=== PATIENT | female | born 1930 | race Caucasian/White ===

== ENCOUNTER 2017-07-23 22:10 | Emergency (ER) | payer MEDICARE, BC ==
--- NOTE | 2017-07-23 22:34 | EDM.PDOC ---
ED HPI GENERAL MEDICAL PROBLEM - General Chief Complaint: General Stated Complaint: HIGH BLOOD PRESSURE Time Seen by Provider: 07/23/17 22:20 - History of Present Illness INITIAL COMMENTS - FREE TEXT/NARRATIVE: HISTORY AND PHYSICAL: History of present illness: The patient is an 86-year-old female who follows with Dr. Arenas at [facility] and in fact saw him yesterday, Thursday, and she was told by the provider that her blood pressure was elevated and that she needed to reduce and/ or eliminate salt in her diet. She admitted to him that she had missed a dose of her medication and on that evaluation yesterday he did not adjust or change her medicines but advised her to be compliant. She was diagnosed with the UTI and placed on antibiotics which she states she is taking. This evening she took her blood pressure at home and it was elevated so she was concerned and came for evaluation. She has no headache dizziness or lightheadedness and no back pain no chest pain no shortness of breath no neurosensory changes or weakness in her extremities and no abdominal pain. He does admit to me that she has been "very liberal with the salt" lately. On initial evaluation here her blood pressure was 190/85 and then proceeded to drop to 176/69 and then again to 149/ 68 by just sitting in the department. She says she was told that she should check her blood pressure daily and record it but she has not been doing that either. She denies any leg pain or swelling. Currently the patient says she is completely asymptomatic and the only reason why she came here was because of the high number on her blood pressure reading at home Review of systems: As per history of present illness and below otherwise all systems reviewed and negative. Past medical history: As per history of present illness and as reviewed below otherwise noncontributory. Surgical history: As per history of present illness and as reviewed below otherwise noncontributory. Social history: No reported history of drug or alcohol abuse. Family history: As per history of present illness and as reviewed below otherwise noncontributory. Physical exam: Gen.: Well-developed well-nourished female who is nontoxic and vital signs were noted by me including the blood pressures as above in the history of present illness HEENT: Atraumatic, normocephalic, , negative for conjunctival pallor or scleral icterus, mucous membranes moist, throat clear, neck supple, nontender, trachea midline. Lungs: Clear to auscultation, breath sounds equal bilaterally, chest nontender. Heart: S1S2, regular rate and rhythm no overt murmurs Abdomen: Soft, nondistended, nontender. NABS Pelvis: Deferred Genitourinary: Deferred. Rectal: Deferred. Extremities: Atraumatic, negative for cords or calf pain. Neurovascular unremarkable. Neuro: Awake, alert, oriented. Cranial nerves II through XII unremarkable. Cerebellum unremarkable. Motor and sensory unremarkable throughout. Exam nonfocal. Diagnostics: [] Therapeutics: [] Encourage the patient to try to reduce or eliminate salt intake to be compliant with her blood pressure medications and to do a blood pressure journal recording her blood pressure approximately 3 hours after she wakes in the morning and to discuss these numbers with her provider in the clinic on Thursday or Thursday. She is aware that we do not acutely lower blood pressures here and she has already normalized without any intervention since arrival. I stressed to her reasons to return to the ED and need to contact the clinic tomorrow for follow-up appointment. Impression: Worried well, hypertension with history of same stable Definitive disposition and diagnosis as appropriate pending reevaluation and review of above. 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: Musculoskeletal History: Reports: Back Pain, Chronic Neurological History: Reports: None Psychiatric History: Reports: Anxiety Endocrine/Metabolic History: Reports: None Hematologic History: Reports: None Immunologic History: Reports: None Oncologic (Cancer) History: Reports: None Dermatologic History: Reports: None - Infectious Disease History Infectious Disease History: Reports: Chicken Pox - Past Surgical History Head Surgeries/Procedures: Reports: None Social & Family History - Family History Family Medical History: Noncontributory - Tobacco Use Smoking Status *Q: Never Smoker Second Hand Smoke Exposure: No - Caffeine Use Caffeine Use: Reports: Coffee, Tea - Recreational Drug Use Recreational Drug Use: No ED ROS GENERAL - Review of Systems Review Of Systems: ROS reveals no pertinent complaints other than HPI. ED EXAM, GENERAL - Physical Exam Exam: See Below (See dictation) Course - Vital Signs Last Recorded V/S: Last Vital Signs Temp 36.2 C 07/23/17 22:19 Pulse 66 07/23/17 22:24 Resp 18 07/23/17 22:19 BP 176/69 H 07/23/17 22:24 Pulse Ox 96 07/23/17 22:19 Departure - Departure Time of Disposition: 22:33 Disposition: Home, Self-Care 01 Condition: Good Clinical Impression: Worried well Hypertension Qualifiers: Hypertension type: unspecified secondary hypertension Qualified Code(s): I15.9 - Secondary hypertension, unspecified; I15 - Secondary hypertension - Discharge Information Referrals: Ravi Arenas MD [Primary Care Provider] - Additional Instructions: The following information is given to patients seen in the emergency department who are being discharged to home. This information is to outline your options for follow-up care. We provide all patients seen in our emergency department with a follow-up referral. The need for follow-up, as well as the timing and circumstances, are variable depending upon the specifics of your emergency department visit. If you don't have a primary care physician on staff, we will provide you with a referral. We always advise you to contact your personal physician following an emergency department visit to inform them of the circumstance of the visit and for follow-up with them and/or the need for any referrals to a consulting specialist. The emergency department will also refer you to a specialist when appropriate. This referral assures that you have the opportunity for followup care with a specialist. All of these measure are taken in an effort to provide you with optimal care, which includes your followup. Under all circumstances we always encourage you to contact your private physician who remains a resource for coordinating your care. When calling for followup care, please make the office aware that this follow-up is from your recent emergency room visit. If for any reason you are refused follow-up, please contact the [facility] emergency department at and ask to speak to the emergency department charge nurse. [facility] [address] [place] [address] [address] [id number] Please try to reduce and/or eliminate added salt in her diet as well as foods containing a great deal of sodium. Please read food labels to find this information. Please be compliant with your blood pressure medications and please do your blood pressure journal as we discussed taking her blood pressure every morning about 3 hours after you wake up and recording it so that your provider can see these numbers. Return to ER as needed and as discussed
[2017-07-23 22:56] VITALS: BP 168/68
== END 2017-07-23 22:49 | disposition home or self-care (01) ==
LOC: MW.ED 22:10
DX: I15.9 Secondary hypertension, unspecified (principal); I10 Essential (primary) hypertension; Z79.899 Other long term (current) drug therapy; Z88.7 Allergy status to serum and vaccine
CPT/HCPCS: 99282

== ENCOUNTER 2018-12-29 16:51 | Inpatient (IN) | payer MEDICARE, OTHER ==
[2018-12-29] MEDS ORDERED: Sodium Chloride 0.9% 10 ML SDV IV PRN (16:53)
[2018-12-29] MEDS ORDERED: Sodium Chloride 0.9% 2.5 ML Syringe FLUSH PRN (16:53)
[2018-12-29] MEDS ORDERED: Sodium Chloride 0.9% 10 ML Syringe FLUSH PRN (16:53)
--- NOTE | 2018-12-29 17:01 | EDM.PDOC ---
ED HPI GENERAL MEDICAL PROBLEM - General Stated Complaint: STROKE CODE Time Seen by Provider: 12/29/18 16:54 - History of Present Illness INITIAL COMMENTS - FREE TEXT/NARRATIVE: HISTORY AND PHYSICAL: History of present illness: Patient is a 88-year-old white female who presents here with her daughter who states that a half hour prior to arrival patient became somewhat confused and she then noticed a right facial droop patient complains on arrival here of some numbness to her right face and is noted to have a right facial droop. She denies chest pain shortness of breath trauma fever chills or other concerns. Patient's daughter describes her mental status episode as inability to dialysis on and somewhat confused speech and orientation this has improved somewhat since arrival here. Review of systems: As per history of present illness and below otherwise all systems reviewed and negative. Past medical history: As per history of present illness and as reviewed below otherwise noncontributory. Surgical history: As per history of present illness and as reviewed below otherwise noncontributory. Social history: No reported history of drug or alcohol abuse. Family history: As per history of present illness and as reviewed below otherwise noncontributory. Physical exam: HEENT: Atraumatic, normocephalic, pupils reactive, negative for conjunctival pallor or scleral icterus, mucous membranes moist, throat clear, neck supple, nontender, trachea midline. Lungs: Clear to auscultation, breath sounds equal bilaterally, chest nontender. Heart: S1S2, regular, negative for clicks, rubs, or JVD. Abdomen: Soft, nondistended, nontender. Negative for masses or hepatosplenomegaly. Negative for costovertebral tenderness. Pelvis: Stable nontender. Genitourinary: Deferred. Rectal: Deferred. Extremities: Atraumatic, negative for cords or calf pain. Neurovascular unremarkable. Neuro: Awake, alert, oriented. To person place does follow commands and move all extremities is noted to have a right facial droop and paresthesia of the right face.. Diagnostics: CBC CMP troponin PT/INR chest x-ray EKG CT brain Therapeutics: IV O2 monitor aspirin 324 mg by mouth Impression: #1 altered mental status improved #2 right facial droop with paresthesia Definitive disposition and diagnosis as appropriate pending reevaluation and review of above. - Related Data Allergies Allergy/AdvReac Type Severity Reaction Status Date / Time Tetanus Vaccines and Toxoid Allergy Other Verified 12/29/18 17:52 [Tetanus Vaccines & Toxoid] Home Meds: Home Meds . 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: Musculoskeletal History: Reports: Back Pain, Chronic Neurological History: Reports: None Psychiatric History: Reports: Anxiety Endocrine/Metabolic History: Reports: None Hematologic History: Reports: None Immunologic History: Reports: None Oncologic (Cancer) History: Reports: None Dermatologic History: Reports: None - Infectious Disease History Infectious Disease History: Reports: Chicken Pox, Measles - Past Surgical History Head Surgeries/Procedures: Reports: None HEENT Surgical History: Reports: None Cardiovascular Surgical History: Reports: None Respiratory Surgical History: Reports: None GI Surgical History: Reports: None Female Surgical History: Reports: None Endocrine Surgical History: Reports: None Neurological Surgical History: Reports: None Musculoskeletal Surgical History: Reports: None Dermatological Surgical History: Reports: None Social & Family History - Family History Family Medical History: Noncontributory - Caffeine Use Caffeine Use: Reports: None ED ROS GENERAL - Review of Systems Review Of Systems: ROS reveals no pertinent complaints other than HPI. ED EXAM, GENERAL - Physical Exam Exam: See Below (See dictation) Course - Vital Signs Text/Narrative:: Lengthy discussion with patient and daughter patient declines transfer declined TPA clearly understands risks and benefits of both she has had improvement in the emergency department during her short stay here Dr. Cantu kindly accepted patient for admission and did evaluate the patient in the emergency department patient will be admitted as CVA she was given aspirin emergency department and her blood pressure continues be monitored closely Last Recorded V/S: Last Vital Signs Temp 36.3 C 12/29/18 16:51 Pulse 101 H 12/29/18 16:51 Resp 20 12/29/18 16:51 BP 229/99 H 12/29/18 16:51 Pulse Ox 95 12/29/18 17:44 - Orders/Labs/Meds Orders: Active Orders 24 hr Category Date Time Status Assess Neurological Status [RC] ASDIRECTED Care 12/29/18 16:54 Active Bedrest [RC] ASDIRECTED Care 12/29/18 16:54 Active Cardiac Monitoring [RC] . DIRECTED Care 12/29/18 16:54 Active EKG Documentation Completion [RC] STAT Care 12/29/18 16:54 Active Height and Weight [RC] UPON Care 12/29/18 16:54 Active Initiate Acute Stroke Protocol [RC] STAT Care 12/29/18 16:54 Active NIH Stroke Scale [RC] ASDIRECTED Care 12/29/18 16:54 Active Nursing Bedside Swallow Screen [RC] ASDIRECTED Care 12/29/18 16:54 Active Oxygen Therapy [RC] ASDIRECTED Care 12/29/18 16:54 Active Stroke Education, General [RC] Click to Edit Care 12/29/18 16:54 Active Vital Signs [RC] Q15M Care 12/29/18 16:54 Active Head wo Cont [CT] Stat Exams 12/29/18 16:54 Taken Sodium Chloride 0.9% [Normal Saline] Med 12/29/18 16:53 Active 10 ml IV ASDIRECTED PRN Sodium Chloride 0.9% [Saline Flush] Med 12/29/18 16:53 Active 10 ml FLUSH ASDIRECTED PRN Sodium Chloride 0.9% [Saline Flush] Med 12/29/18 16:53 Active 2.5 ml FLUSH ASDIRECTED PRN Peripheral IV Insertion Adult [OM.PC] Stat Oth 12/29/18 16:54 Ordered Peripheral IV Insertion Adult [OM.PC] Stat Oth 12/29/18 16:54 Ordered Medication Orders Sodium Chloride (Saline Flush) 10 ml FLUSH ASDIRECTED PRN PRN Reason: Keep Vein Open Sodium Chloride (Saline Flush) 2.5 ml FLUSH ASDIRECTED PRN PRN Reason: Keep Vein Open Sodium Chloride (Normal Saline) 10 ml IV ASDIRECTED PRN PRN Reason: IV Use Labs: Laboratory Tests 12/29/18 12/29/18 12/29/18 Range/Units 16:55 16:55 16:55 WBC 7.16 (4.0-11.0) K/uL RBC 5.24 (4.30-5.90) M/uL Hgb 14.5 (12.0-16.0) g/dL Hct 44.3 (36.0-46.0) % MCV 84.5 (80.0-98.0) fL MCH 27.7 (27.0-32.0) pg MCHC 32.7 (31.0-37.0) g/dL RDW Std Deviation 45.8 (28.0-62.0) fl RDW Coeff of Tyron 15 (11.0-15.0) % Plt Count 193 (150-400) K/uL MPV 10.70 (7.40-12.00) fL Neut % (Auto) 53.6 (48.0-80.0) % Lymph % (Auto) 33.7 (16.0-40.0) % [place] % (Auto) 8.1 (0.0-15.0) % Eos % (Auto) 4.2 (0.0-7.0) % Baso % (Auto) 0.4 (0.0-1.5) % Neut # (Auto) 3.8 (1.4-5.7) K/uL Lymph # (Auto) 2.4 (0.6-2.4) K/uL [place] # (Auto) 0.6 (0.0-0.8) K/uL Eos # (Auto) 0.3 (0.0-0.7) K/uL Baso # (Auto) 0.0 (0.0-0.1) K/uL Nucleated RBC % 0.0 /100WBC Nucleated RBCs # 0 K/uL INR 0.95 APTT 26.4 (18.6-31.3) SEC Sodium 140 (136-145) mmol/L Potassium 4.5 (3.5-5.1) mmol/L Chloride 106 (98-107) mmol/L Carbon Dioxide 23.0 (21.0-32.0) mmol/L BUN 26 H (7.0-18.0) mg/dL Creatinine 0.9 (0.6-1.0) mg/dL Est Cr Clr Drug Dosing TNP Estimated GFR (MDRD) 59.4 ml/min Glucose 108 H (74-106) mg/dL Calcium 9.3 (8.5-10.1) mg/dL Total Bilirubin 0.4 (0.2-1.0) mg/dL AST 26 (15-37) IU/L ALT 30 (14-63) IU/L Alkaline Phosphatase 57 (46-116) U/L Troponin I < 0.050 (0.000-0.056) ng/mL Total Protein 7.7 (6.4-8.2) g/dL Albumin 3.6 (3.4-5.0) g/dL Globulin 4.1 H (2.6-4.0) g/dL Albumin/Globulin Ratio 0.9 (0.9-1.6) TSH 3rd Generation 4.15 H (0.36-3.74) uIU/mL Meds: Medications Generic Name Dose Route Start Last Admin Trade Name Freq PRN Reason Stop Dose Admin Sodium Chloride 10 ml 12/29/18 16:53 Saline Flush FLUSH ASDIRECTED PRN Keep Vein Open Sodium Chloride 2.5 ml 12/29/18 16:53 Saline Flush FLUSH ASDIRECTED PRN Keep Vein Open Sodium Chloride 10 ml 12/29/18 16:53 Normal Saline IV ASDIRECTED PRN IV Use Discontinued Medications Generic Name Dose Route Start Last Admin Trade Name Freq PRN Reason Stop Dose Admin Aspirin 324 mg 12/29/18 17:30 12/29/18 17:39 Aspirin PO 12/29/18 17:31 324 mg ONETIME ONE Administration Departure - Departure Time of Disposition: 18:00 Disposition: Admitted As Inpatient 68 Condition: Good Clinical Impression: CVA (cerebral vascular accident) - Discharge Information Referrals: PCP,None [Primary Care Provider] -
[2018-12-29] MEDS ORDERED: Aspirin 81 MG Tab.Chew PO ONE (17:30)
[2018-12-29 17:37] LABS: CHLORIDE,CL 106 mmol/L (98-107); SODIUM,NA 140 mmol/L (136-145)
--- NOTE | 2018-12-29 18:00 | CT ---
INDICATION: WEAKNESS CT HEAD WITHOUT CONTRAST TECHNIQUE: Multiple axial CT images were performed through the head without intravenous contrast administration. COMPARISON: 07/26/[address] FINDINGS: No acute intracranial hemorrhage is identified. No extra-axial collections are evident and there is no mass effect or midline shift. There is mild diffuse age-related brain atrophy. Ventricular size and configuration are within normal limits for the patient`s age. Dumont-white differentiation is within normal limits. There is patchy hypodensity in the periventricular white matter, a nonspecific finding which most likely reflects chronic small vessel ischemic change. Intracranial atherosclerotic vascular calcifications are noted. Osseous structures are within normal limits and no fractures are seen. Included portions of the paranasal sinuses and mastoid air cells are normally aerated. IMPRESSION: 1. No acute intracranial abnormality identified. 2. Age-related brain atrophy, white matter hypodensity consistent with chronic small vessel ischemic change, and intracranial atherosclerotic vascular calcifications. Report called to Dr. White at 5:34pm 12/29/2018. LIZETT PACHECO MD [employer] Dictated by: Micah Pacheco MD @ 12/29/2018 17:59:05 (Electronically Signed)
[2018-12-29] MEDS ORDERED: Acetaminophen 325 MG Tab PO PRN (18:05)
[2018-12-29] MEDS ORDERED: oxyCODONE 5 MG Tab PO PRN (18:05)
[2018-12-29] MEDS ORDERED: Ondansetron 4 MG Tab.DIS PO PRN (18:05)
[2018-12-29] MEDS ORDERED: Temazepam 15 MG Cap PO PRN (18:05)
[2018-12-29] MEDS ORDERED: Docusate Sodium 100 MG Cap PO PRN (18:05)
[2018-12-29] MEDS ORDERED: Sodium Chloride 0.9% 1,000 ML IV SCH (18:15)
--- NOTE | 2018-12-29 18:23 | PCM.HP ---
H&P History of Present Illness - General Date of Service: 12/29/18 Admit Problem/Dx: Admission Diagnosis/Problem Admission Diagnosis/Problem CVA, Cerebrovascular accident Source of Information: Patient, Family History Limitations: Reports: No Limitations - History of Present Illness Initial Comments - Free Text/Narative: The patient is an 88-year-old lady who had presented to the emergency department with acute onset of stroke symptoms. The patient and the patient's daughter can pinpoint the exact time of symptoms starting at about 1615 prior to presentation. The patient was improving and was not eligible for TPA. The patient had numbness and tingling predominantly on the left side. She also had a left-sided facial droop. She had some slurring of her speech. The patient's ER visit was listed as a stroke code. The patient had denied any diaphoresis. She's had no nausea vomiting associated with this. The patient has no pain. She has been able to communicate effectively. Both patient and the patient's daughter did not want transfer to tertiary care center. The patient also had requested a DO NOT INTUBATE/DO NOT RESUSCITATE categorization. The patient is otherwise mostly healthy and she does not take any medications chronically but she does take multiple nutritional supplements. Onset of Symptoms: Reports: Sudden Duration of Symptoms: Reports: Hour(s):, Improving Location: Reports: Generalized Quality: Denies: Ache, Burning Severity: Mild Improves with: Reports: Rest Worsens with: Reports: None Associated Symptoms: Reports: No Other Symptoms no pain Pain Score (Numeric/FACES): 0 - Related Data Allergies/Adverse Reactions: Allergies Allergy/AdvReac Type Severity Reaction Status Date / Time Tetanus Vaccines and Toxoid Allergy Other Verified 12/29/18 17:52 [Tetanus Vaccines & Toxoid] Home Medications: Home Meds . [No Known Home Meds] 12/29/18 [History] Past Medical History HEENT History: Reports: None Cardiovascular History: Reports: Hypertension Respiratory History: Reports: None Gastrointestinal History: Reports: None Genitourinary History: Reports: Urinary Incontinence, UTI, Recurrent SMOKE TESTER History: Reports: Musculoskeletal History: Reports: Back Pain, Chronic Neurological History: Reports: None Psychiatric History: Reports: Anxiety Endocrine/Metabolic History: Reports: None Hematologic History: Reports: None Immunologic History: Reports: None Oncologic (Cancer) History: Reports: None Dermatologic History: Reports: None - Infectious Disease History Infectious Disease History: Reports: Chicken Pox, Measles - Past Surgical History Head Surgeries/Procedures: Reports: None HEENT Surgical History: Reports: None Cardiovascular Surgical History: Reports: None Respiratory Surgical History: Reports: None GI Surgical History: Reports: None Female Surgical History: Reports: None Endocrine Surgical History: Reports: None Neurological Surgical History: Reports: None Musculoskeletal Surgical History: Reports: None Dermatological Surgical History: Reports: None Social & Family History - Family History Family Medical History: Noncontributory - Tobacco Use Smoking Status *Q: Never Smoker - Caffeine Use Caffeine Use: Reports: None - Alcohol Use Alcohol Use History: No - Recreational Drug Use Recreational Drug Use: No - Living Situation & Occupation Living situation: Reports: , Alone Occupation: Retired H&P Review of Systems - Review of Systems: Review Of Systems: See Below General: Reports: No Symptoms HEENT: Reports: No Symptoms Pulmonary: Reports: No Symptoms Cardiovascular: Reports: No Symptoms Gastrointestinal: Reports: No Symptoms Genitourinary: Reports: No Symptoms Musculoskeletal: Reports: No Symptoms Skin: Reports: No Symptoms Psychiatric: Reports: No Symptoms Neurological: Reports: Numbness, Tingling, Difficulty Walking, Weakness Hematologic/Lymphatic: Reports: No Symptoms Immunologic: Reports: No Symptoms Exam - Exam Exam: See Below - Vital Signs Vital Signs: Last Vital Signs Temp 36.3 C 12/29/18 16:51 Pulse 88 12/29/18 18:04 Resp 18 12/29/18 18:04 BP 187/84 H 12/29/18 18:04 Pulse Ox 94 L 12/29/18 18:04 Weight: 62.2 kg - Exam Quality Assessment: No: Supplemental Oxygen General: Alert, Oriented, Cooperative HEENT: Conjunctiva Clear, EACs Clear, EOMI, Hearing Intact, Mucosa Moist & [place] , Posterior Pharynx Clear (Uvula midline), Pupils Equal, PERRLA Neck: Supple, Trachea Midline Lungs: Clear to Auscultation, Normal Respiratory Effort Cardiovascular: Regular Rate, Regular Rhythm GI/Abdominal Exam: Normal Bowel Sounds, Soft, Non-Tender, No Distention. No: Guarding, Rigid Back Exam: Normal Inspection (Kyphosis), Full Range of Motion Extremities: Normal Inspection, No Pedal Edema Skin: Warm, Dry, Intact Neurological: Cranial Nerves Intact Neuro Extensive - Mental Status: Alert, Oriented x3, Normal Mood/Affect, Normal Cognition Neuro Extensive - Motor, Sensory, Reflexes: CN II-XII Intact, Facial palsy (L), Facial Palsy w Forehead. No: Abnormal Reflexes, Tongue Deviation (L), Tongue Deviation (R), Abnormal Sensation, Abnormal Motor Psychiatric: Alert, Normal Affect, Normal Mood - Patient Data Lab Results Last 24 hrs: Laboratory Results - last 24 hr 12/29/18 12/29/18 12/29/18 Range/Units 16:55 16:55 16:55 WBC 7.16 (4.0-11.0) K/uL RBC 5.24 (4.30-5.90) M/uL Hgb 14.5 (12.0-16.0) g/dL Hct 44.3 (36.0-46.0) % MCV 84.5 (80.0-98.0) fL MCH 27.7 (27.0-32.0) pg MCHC 32.7 (31.0-37.0) g/dL RDW Std Deviation 45.8 (28.0-62.0) fl RDW Coeff of Tyron 15 (11.0-15.0) % Plt Count 193 (150-400) K/uL MPV 10.70 (7.40-12.00) fL Neut % (Auto) 53.6 (48.0-80.0) % Lymph % (Auto) 33.7 (16.0-40.0) % [place] % (Auto) 8.1 (0.0-15.0) % Eos % (Auto) 4.2 (0.0-7.0) % Baso % (Auto) 0.4 (0.0-1.5) % Neut # (Auto) 3.8 (1.4-5.7) K/uL Lymph # (Auto) 2.4 (0.6-2.4) K/uL [place] # (Auto) 0.6 (0.0-0.8) K/uL Eos # (Auto) 0.3 (0.0-0.7) K/uL Baso # (Auto) 0.0 (0.0-0.1) K/uL Nucleated RBC % 0.0 /100WBC Nucleated RBCs # 0 K/uL INR 0.95 APTT 26.4 (18.6-31.3) SEC Sodium 140 (136-145) mmol/L Potassium 4.5 (3.5-5.1) mmol/L Chloride 106 (98-107) mmol/L Carbon Dioxide 23.0 (21.0-32.0) mmol/L BUN 26 H (7.0-18.0) mg/dL Creatinine 0.9 (0.6-1.0) mg/dL Est Cr Clr Drug Dosing TNP Estimated GFR (MDRD) 59.4 ml/min Glucose 108 H (74-106) mg/dL Calcium 9.3 (8.5-10.1) mg/dL Total Bilirubin 0.4 (0.2-1.0) mg/dL AST 26 (15-37) IU/L ALT 30 (14-63) IU/L Alkaline Phosphatase 57 (46-116) U/L Troponin I < 0.050 (0.000-0.056) ng/mL Total Protein 7.7 (6.4-8.2) g/dL Albumin 3.6 (3.4-5.0) g/dL Globulin 4.1 H (2.6-4.0) g/dL Albumin/Globulin Ratio 0.9 (0.9-1.6) TSH 3rd Generation 4.15 H (0.36-3.74) uIU/mL Result Diagrams: 12/30/18 06:43 12/29/18 16:55 - Problem List (1) CVA (cerebral vascular accident) SNOMED Code(s): 190224342 ICD Code: I63.9 - CEREBRAL INFARCTION, UNSPECIFIED Status: Acute Priority : High Current Visit: Yes Qualifiers: CVA mechanism: embolism Precerebral and cerebral artery: unspecified cerebral artery Qualified Code(s): I63.40 - Cerebral infarction due to embolism of unspecified cerebral artery (2) Hypertension SNOMED Code(s): 59031516 ICD Code: I10 - ESSENTIAL (PRIMARY) HYPERTENSION Status: Chronic Priority : High Current Visit: Yes Qualifiers: Hypertension type: essential hypertension Qualified Code(s): I10 - Essential (primary) hypertension (3) Lumbar back pain SNOMED Code(s): 081861110 ICD Code: M54.5 - LOW BACK PAIN Status: Chronic Priority: Medium Current Visit: Yes Qualifiers: Chronicity: chronic Back pain laterality: bilateral Sciatica presence: without sciatica Qualified Code(s): M54.5 - Low back pain; G89.29 - Other chronic pain Problem List Initiated/Reviewed/Updated: Yes Orders Last 24hrs: Active Orders 24 hr Category Date Time Status Patient Status [ADT] Stat ADT 12/29/18 18:02 Active Assess Neurological Status [RC] ASDIRECTED Care 12/29/18 16:54 Active Bedrest [RC] ASDIRECTED Care 12/29/18 16:54 Active Cardiac Monitoring [RC] . DIRECTED Care 12/29/18 16:54 Active EKG Documentation Completion [RC] STAT Care 12/29/18 16:54 Active Height and Weight [RC] UPON Care 12/29/18 16:54 Active Initiate Acute Stroke Protocol [RC] STAT Care 12/29/18 16:54 Active NIH Stroke Scale [RC] ASDIRECTED Care 12/29/18 16:54 Active Neuro Check [RC] Q4H Care 12/29/18 18:05 Active Nursing Bedside Swallow Screen [RC] ASDIRECTED Care 12/29/18 16:54 Active Oxygen Therapy [RC] ASDIRECTED Care 12/29/18 16:54 Active Oxygen Therapy [RC] PRN Care 12/29/18 18:05 Active Stroke Education, General [RC] Click to Edit Care 12/29/18 16:54 Active Up With Assistance [RC] ASDIRECTED Care 12/29/18 18:05 Active VTE/DVT Education [RC] PER UNIT ROUTINE Care 12/29/18 18:05 Active Vital Signs [RC] Q15M Care 12/29/18 16:54 Active Vital Signs [RC] Q4H Care 12/29/18 18:05 Active OT Evaluation and Treatment [CONS] Routine Cons 12/29/18 18:05 Active PT Evaluation and Treatment [CONS] Routine Cons 12/29/18 18:05 Active BOOSTER PUMP OPERATOR Evaluation and Treatment [CONS] Routine Cons 12/29/18 18:05 Active Clear Liquid Diet [DIET] Diet 12/29/18 Breakfast Active CBC WITH AUTO DIFF [HEME] AM Lab 12/30/18 05:11 Ordered COMPREHENSIVE METABOLIC PN,CMP [CHEM] AM Lab 12/30/18 05:11 Ordered LIPID PANEL [CHEM] Stat Lab 12/29/18 18:05 Ordered Acetaminophen [Tylenol] Med 12/29/18 18:05 Ordered 650 mg PO Q4H PRN Docusate Sodium [Colace] Med 12/29/18 18:05 Ordered 100 mg PO BID PRN Heparin Sodium Med 12/29/18 18:15 Ordered 5,000 units SUBCUT Q8H Ondansetron [Zofran ODT] Med 12/29/18 18:05 Ordered 4 mg PO Q6H PRN Sodium Chloride 0.9% [Normal Saline] Med 12/29/18 16:53 Active 10 ml IV ASDIRECTED PRN Sodium Chloride 0.9% [Normal Saline] 1,000 ml Med 12/29/18 18:15 Ordered IV ASDIRECTED Sodium Chloride 0.9% [Saline Flush] Med 12/29/18 16:53 Active 10 ml FLUSH ASDIRECTED PRN Sodium Chloride 0.9% [Saline Flush] Med 12/29/18 16:53 Active 2.5 ml FLUSH ASDIRECTED PRN Temazepam [Restoril] Med 12/29/18 18:05 Ordered 15 mg PO BEDTIME PRN oxyCODONE Med 12/29/18 18:05 Ordered 5 mg PO Q4H PRN Blood Pressure Mgmt:Acute Stroke [OM.PC] Urgent Oth 12/29/18 18:14 Ordered Blood Pressure [OM.PC] Stat Ot 12/29/18 18:16 Ordered Peripheral IV Insertion Adult [OM.PC] Stat Ot 12/29/18 16:54 Ordered Peripheral IV Insertion Adult [OM.PC] Stat Ot 12/29/18 16:54 Ordered Resuscitation Status Routine Resus Stat 12/29/18 18:05 Ordered Medication Orders Acetaminophen (Tylenol) 650 mg PO Q4H PRN PRN Reason: Pain (Mild 1-3)/fever Docusate Sodium (Colace) 100 mg PO BID PRN PRN Reason: Constipation Heparin Sodium (Porcine) (Heparin Sodium) 5,000 units SUBCUT Q8H [facility] Sodium Chloride (Normal Saline) 1,000 mls @ 50 mls/hr IV ASDIRECTED [facility] Ondansetron HCl (Zofran Odt) 4 mg PO Q6H PRN PRN Reason: nausea, able to take PO Oxycodone HCl (Oxycodone) 5 mg PO Q4H PRN PRN Reason: Pain (moderate 4-6) Sodium Chloride (Saline Flush) 10 ml FLUSH ASDIRECTED PRN PRN Reason: Keep Vein Open Sodium Chloride (Saline Flush) 2.5 ml FLUSH ASDIRECTED PRN PRN Reason: Keep Vein Open Sodium Chloride (Normal Saline) 10 ml IV ASDIRECTED PRN PRN Reason: IV Use Temazepam (Restoril) 15 mg PO BEDTIME PRN PRN Reason: Sleep Assessment/Plan Comment:: The patient is an 88-year-old lady who had been admitted secondary to acute stroke. I've admitted the patient is an inpatient with neuro checks every 4 hours. I've also ordered the patient to have vital signs every 4 hours. I've ordered an MRI/MRA of brain to help identify areas of possible ischemia. Is also noted that the patient's blood pressure was elevated and she had been recommended to keep her blood pressure between 140 and 160 mmHg systolic blood pressure. This was done to help oxygenate watershed areas. Physical therapy is also been ordered for the patient. The patient did have a bedside swallow inducted in the emergency department and she was able to handle thin liquids without coughing. In the interim the patient will be kept on clear liquid diet until swallow study The patient will ordered to have a more in-depth swallow and speech evaluation. I explained to the patient the patient's daughter the differences between TIA and cerebral infarct and that now she was at the phase of secondary prevention. CT scan did not show any evidence of cerebral hemorrhage therefore she'll have DVT prophylaxis with the use of heparin. The patient does not normally like taking medications however, I explained that she will be needing some medications upon discharge. The patient should be appropriate for discharge in 1-2 days.
[2018-12-29] MEDS: Heparin Sodium 5,000 Units/ML Vial SUBCUT SCH (22:00)
[2018-12-30] MEDS: Heparin Sodium 5,000 Units/ML Vial SUBCUT SCH ×3 (05:28→21:41)
--- NOTE | 2018-12-30 10:05 | PCM.DCSUM1 ---
Discharge Summary - Discharge Data Discharge Disposition: Home, Self-Care 01 Condition: Fair - Discharge Diagnosis/Problem(s) (1) CVA (cerebral vascular accident) SNOMED Code(s): 920582413 ICD Code: I63.9 - CEREBRAL INFARCTION, UNSPECIFIED Status: Acute Priority : High Current Visit: Yes Qualifiers: CVA mechanism: embolism Precerebral and cerebral artery: unspecified cerebral artery Qualified Code(s): I63.40 - Cerebral infarction due to embolism of unspecified cerebral artery (2) Hypertension SNOMED Code(s): 10717611 ICD Code: I10 - ESSENTIAL (PRIMARY) HYPERTENSION Status: Chronic Priority : High Current Visit: Yes Qualifiers: Hypertension type: essential hypertension Qualified Code(s): I10 - Essential (primary) hypertension (3) Lumbar back pain SNOMED Code(s): 836701824 ICD Code: M54.5 - LOW BACK PAIN Status: Chronic Priority: Medium Current Visit: Yes Qualifiers: Chronicity: chronic Back pain laterality: bilateral Sciatica presence: without sciatica Qualified Code(s): M54.5 - Low back pain; G89.29 - Other chronic pain - Patient Summary/Data Consults: Consultations 12/29/18 18:05 OT Evaluation and Treatment [CONS] Routine PT Evaluation and Treatment [CONS] Routine PLY BANDER Evaluation and Treatment [CONS] Routine - Discharge Plan Home Medications: Home Meds . [No Known Home Meds] 12/29/18 [History] Referrals: Ravi Arenas MD [Ordering Only Provider] - 01/06/19 9:30 am - Patient Data Vitals - Most Recent: Last Vital Signs Temp 36.4 C 12/30/18 08:00 Pulse 78 12/30/18 08:00 Resp 18 12/30/18 08:00 BP 181/84 H 12/30/18 08:00 Pulse Ox 95 12/30/18 08:00 Weight - Most Recent: 62.2 kg I&O - Last 24 hours: Intake & Output 12/29/18 12/30/18 12/30/18 22:59 06:59 14:59 Intake Total 1320 696 Output Total 700 Balance 620 696 Lab Results - Last 24 hrs: Laboratory Results - last 24 hr 12/29/18 12/29/18 12/29/18 Range/Units 16:55 16:55 16:55 WBC 7.16 (4.0-11.0) K/uL RBC 5.24 (4.30-5.90) M/uL Hgb 14.5 (12.0-16.0) g/dL Hct 44.3 (36.0-46.0) % MCV 84.5 (80.0-98.0) fL MCH 27.7 (27.0-32.0) pg MCHC 32.7 (31.0-37.0) g/dL RDW Std Deviation 45.8 (28.0-62.0) fl RDW Coeff of Tyron 15 (11.0-15.0) % Plt Count 193 (150-400) K/uL MPV 10.70 (7.40-12.00) fL Neut % (Auto) 53.6 (48.0-80.0) % Lymph % (Auto) 33.7 (16.0-40.0) % [place] % (Auto) 8.1 (0.0-15.0) % Eos % (Auto) 4.2 (0.0-7.0) % Baso % (Auto) 0.4 (0.0-1.5) % Neut # (Auto) 3.8 (1.4-5.7) K/uL Lymph # (Auto) 2.4 (0.6-2.4) K/uL [place] # (Auto) 0.6 (0.0-0.8) K/uL Eos # (Auto) 0.3 (0.0-0.7) K/uL Baso # (Auto) 0.0 (0.0-0.1) K/uL Nucleated RBC % 0.0 /100WBC Nucleated RBCs # 0 K/uL INR 0.95 APTT 26.4 (18.6-31.3) SEC Sodium 140 (136-145) mmol/L Potassium 4.5 (3.5-5.1) mmol/L Chloride 106 (98-107) mmol/L Carbon Dioxide 23.0 (21.0-32.0) mmol/L BUN 26 H (7.0-18.0) mg/dL Creatinine 0.9 (0.6-1.0) mg/dL Est Cr Clr Drug Dosing TNP Estimated GFR (MDRD) 59.4 ml/min Glucose 108 H (74-106) mg/dL Calcium 9.3 (8.5-10.1) mg/dL Total Bilirubin 0.4 (0.2-1.0) mg/dL AST 26 (15-37) IU/L ALT 30 (14-63) IU/L Alkaline Phosphatase 57 (46-116) U/L Troponin I < 0.050 (0.000-0.056) ng/mL Total Protein 7.7 (6.4-8.2) g/dL Albumin 3.6 (3.4-5.0) g/dL Globulin 4.1 H (2.6-4.0) g/dL Albumin/Globulin Ratio 0.9 (0.9-1.6) Triglycerides (0-200) mg/dL Cholesterol (50-200) mg/dL LDL Cholesterol, Calc (60-180) mg/dL VLDL Cholesterol (5-55) mg/dL HDL Cholesterol (40-60) mg/dL Cholesterol/HDL Ratio (3.3-6.0) TSH 3rd Generation 4.15 H (0.36-3.74) uIU/mL 12/29/18 12/30/18 12/30/18 Range/Units 16:55 06:43 06:43 WBC 5.97 (4.0-11.0) K/uL RBC 4.84 (4.30-5.90) M/uL Hgb 13.1 (12.0-16.0) g/dL Hct 41.0 (36.0-46.0) % MCV 84.7 (80.0-98.0) fL MCH 27.1 (27.0-32.0) pg MCHC 32.0 (31.0-37.0) g/dL RDW Std Deviation 45.8 (28.0-62.0) fl RDW Coeff of [place]ron 15 (11.0-15.0) % Plt Count 161 (150-400) K/uL MPV 10.20 (7.40-12.00) fL Neut % (Auto) 54.3 (48.0-80.0) % Lymph % (Auto) 34.8 (16.0-40.0) % [place] % (Auto) 5.7 (0.0-15.0) % Eos % (Auto) 4.9 (0.0-7.0) % Baso % (Auto) 0.3 (0.0-1.5) % Neut # (Auto) 3.2 (1.4-5.7) K/uL Lymph # (Auto) 2.1 (0.6-2.4) K/uL [place] # (Auto) 0.3 (0.0-0.8) K/uL Eos # (Auto) 0.3 (0.0-0.7) K/uL Baso # (Auto) 0.0 (0.0-0.1) K/uL Nucleated RBC % 0.0 /100WBC Nucleated RBCs # 0 K/uL INR APTT (18.6-31.3) SEC Sodium 143 (136-145) mmol/L Potassium 4.0 (3.5-5.1) mmol/L Chloride 110 H (98-107) mmol/L Carbon Dioxide 24.3 (21.0-32.0) mmol/L BUN 19 H (7.0-18.0) mg/dL Creatinine 0.9 (0.6-1.0) mg/dL Est Cr Clr Drug Dosing 32.23 Estimated GFR (MDRD) 59.4 ml/min Glucose 99 (74-106) mg/dL Calcium 8.5 (8.5-10.1) mg/dL Total Bilirubin 0.6 (0.2-1.0) mg/dL AST 20 (15-37) IU/L ALT 27 (14-63) IU/L Alkaline Phosphatase 51 (46-116) U/L Troponin I (0.000-0.056) ng/mL Total Protein 6.6 (6.4-8.2) g/dL Albumin 3.1 L (3.4-5.0) g/dL Globulin 3.5 (2.6-4.0) g/dL Albumin/Globulin Ratio 0.9 (0.9-1.6) Triglycerides 139 (0-200) mg/dL Cholesterol 230 H (50-200) mg/dL LDL Cholesterol, Calc 144 (60-180) mg/dL VLDL Cholesterol 27 (5-55) mg/dL HDL Cholesterol 58 (40-60) mg/dL Cholesterol/HDL Ratio 4.0 (3.3-6.0) TSH 3rd Generation (0.36-3.74) uIU/mL Med Orders - Current: Current Medications Acetaminophen (Tylenol) 650 mg PO Q4H PRN PRN Reason: Pain (Mild 1-3)/fever Docusate Sodium (Colace) 100 mg PO BID PRN PRN Reason: Constipation Heparin Sodium (Porcine) (Heparin Sodium) 5,000 units SUBCUT Q8H [facility] Last Admin: 12/30/18 05:28 Dose: Not Given Sodium Chloride (Normal Saline) 1,000 mls @ 50 mls/hr IV ASDIRECTED [facility] Last Admin: 12/29/18 18:49 Dose: 50 mls/hr Ondansetron HCl (Zofran Odt) 4 mg PO Q6H PRN PRN Reason: nausea, able to take PO Oxycodone HCl (Oxycodone) 5 mg PO Q4H PRN PRN Reason: Pain (moderate 4-6) Sodium Chloride (Saline Flush) 10 ml FLUSH ASDIRECTED PRN PRN Reason: Keep Vein Open Sodium Chloride (Saline Flush) 2.5 ml FLUSH ASDIRECTED PRN PRN Reason: Keep Vein Open Sodium Chloride (Normal Saline) 10 ml IV ASDIRECTED PRN PRN Reason: IV Use Temazepam (Restoril) 15 mg PO BEDTIME PRN PRN Reason: Sleep Discontinued Medications Aspirin (Aspirin) 324 mg PO ONETIME ONE Stop: 12/29/18 17:31 Last Admin: 12/29/18 17:39 Dose: 324 mg
[2018-12-30] MEDS ORDERED: cloNIDine 0.1 MG Tab PO ONE (11:58)
[2018-12-30] MEDS ORDERED: Labetalol 100 MG/20 ML MDV IVPUSH PRN ×2 (13:44→16:58)
--- NOTE | 2018-12-30 13:46 | PCM.PN ---
- General Info Date of Service: 12/30/18 Admission Dx/Problem (Free Text): Admission Diagnosis/Problem Admission Diagnosis/Problem CVA, Cerebrovascular accident Subjective Update: The patient is an 88-year-old lady who had been admitted secondary to acute stroke. The patient says that she has been feeling weak. The patient's blood pressure has been elevated. She also has been evaluated by physical therapy and speech therapy and is to have a full diet. She can swallow safely. The patient has denied any pain. She has no numbness or tingling of her left side which brought her here in the first place. The patient does still has some left-sided numbness. She has no other complaints at the present time. Functional Status: Reports: Pain Controlled - Review of Systems General: Reports: Weakness HEENT: Reports: No Symptoms Pulmonary: Reports: No Symptoms Cardiovascular: Reports: No Symptoms Gastrointestinal: Reports: No Symptoms Genitourinary: Reports: No Symptoms Musculoskeletal: Reports: No Symptoms Skin: Reports: No Symptoms Neurological: Reports: Pre-Existing Deficit, Change in Speech Psychiatric: Reports: No Symptoms - Patient Data Vitals - Most Recent: Last Vital Signs Temp 35.9 C 12/30/18 12:00 Pulse 77 12/30/18 12:00 Resp 20 12/30/18 12:00 BP 170/75 H 12/30/18 13:30 Pulse Ox 95 12/30/18 12:00 Weight - Most Recent: 62.2 kg I&O - Last 24 Hours: Intake & Output 12/29/18 12/30/18 12/30/18 22:59 06:59 14:59 Intake Total 1320 696 Output Total 700 Balance 620 696 Lab Results Last 24 Hours: Laboratory Results - last 24 hr 12/29/18 12/29/18 12/29/18 Range/Units 16:55 16:55 16:55 WBC 7.16 (4.0-11.0) K/uL RBC 5.24 (4.30-5.90) M/uL Hgb 14.5 (12.0-16.0) g/dL Hct 44.3 (36.0-46.0) % MCV 84.5 (80.0-98.0) fL MCH 27.7 (27.0-32.0) pg MCHC 32.7 (31.0-37.0) g/dL RDW Std Deviation 45.8 (28.0-62.0) fl RDW Coeff of Tyron 15 (11.0-15.0) % Plt Count 193 (150-400) K/uL MPV 10.70 (7.40-12.00) fL Neut % (Auto) 53.6 (48.0-80.0) % Lymph % (Auto) 33.7 (16.0-40.0) % [place] % (Auto) 8.1 (0.0-15.0) % Eos % (Auto) 4.2 (0.0-7.0) % Baso % (Auto) 0.4 (0.0-1.5) % Neut # (Auto) 3.8 (1.4-5.7) K/uL Lymph # (Auto) 2.4 (0.6-2.4) K/uL [place] # (Auto) 0.6 (0.0-0.8) K/uL Eos # (Auto) 0.3 (0.0-0.7) K/uL Baso # (Auto) 0.0 (0.0-0.1) K/uL Nucleated RBC % 0.0 /100WBC Nucleated RBCs # 0 K/uL INR 0.95 APTT 26.4 (18.6-31.3) SEC Sodium 140 (136-145) mmol/L Potassium 4.5 (3.5-5.1) mmol/L Chloride 106 (98-107) mmol/L Carbon Dioxide 23.0 (21.0-32.0) mmol/L BUN 26 H (7.0-18.0) mg/dL Creatinine 0.9 (0.6-1.0) mg/dL Est Cr Clr Drug Dosing TNP Estimated GFR (MDRD) 59.4 ml/min Glucose 108 H (74-106) mg/dL Calcium 9.3 (8.5-10.1) mg/dL Total Bilirubin 0.4 (0.2-1.0) mg/dL AST 26 (15-37) IU/L ALT 30 (14-63) IU/L Alkaline Phosphatase 57 (46-116) U/L Troponin I < 0.050 (0.000-0.056) ng/mL Total Protein 7.7 (6.4-8.2) g/dL Albumin 3.6 (3.4-5.0) g/dL Globulin 4.1 H (2.6-4.0) g/dL Albumin/Globulin Ratio 0.9 (0.9-1.6) Triglycerides (0-200) mg/dL Cholesterol (50-200) mg/dL LDL Cholesterol, Calc (60-180) mg/dL VLDL Cholesterol (5-55) mg/dL HDL Cholesterol (40-60) mg/dL Cholesterol/HDL Ratio (3.3-6.0) TSH 3rd Generation 4.15 H (0.36-3.74) uIU/mL 12/29/18 12/30/18 12/30/18 Range/Units 16:55 06:43 06:43 WBC 5.97 (4.0-11.0) K/uL RBC 4.84 (4.30-5.90) M/uL Hgb 13.1 (12.0-16.0) g/dL Hct 41.0 (36.0-46.0) % MCV 84.7 (80.0-98.0) fL MCH 27.1 (27.0-32.0) pg MCHC 32.0 (31.0-37.0) g/dL RDW Std Deviation 45.8 (28.0-62.0) fl RDW Coeff of Tyron 15 (11.0-15.0) % Plt Count 161 (150-400) K/uL MPV 10.20 (7.40-12.00) fL Neut % (Auto) 54.3 (48.0-80.0) % Lymph % (Auto) 34.8 (16.0-40.0) % [place] % (Auto) 5.7 (0.0-15.0) % Eos % (Auto) 4.9 (0.0-7.0) % Baso % (Auto) 0.3 (0.0-1.5) % Neut # (Auto) 3.2 (1.4-5.7) K/uL Lymph # (Auto) 2.1 (0.6-2.4) K/uL [place] # (Auto) 0.3 (0.0-0.8) K/uL Eos # (Auto) 0.3 (0.0-0.7) K/uL Baso # (Auto) 0.0 (0.0-0.1) K/uL Nucleated RBC % 0.0 /100WBC Nucleated RBCs # 0 K/uL INR APTT (18.6-31.3) SEC Sodium 143 (136-145) mmol/L Potassium 4.0 (3.5-5.1) mmol/L Chloride 110 H (98-107) mmol/L Carbon Dioxide 24.3 (21.0-32.0) mmol/L BUN 19 H (7.0-18.0) mg/dL Creatinine 0.9 (0.6-1.0) mg/dL Est Cr Clr Drug Dosing 32.23 Estimated GFR (MDRD) 59.4 ml/min Glucose 99 (74-106) mg/dL Calcium 8.5 (8.5-10.1) mg/dL Total Bilirubin 0.6 (0.2-1.0) mg/dL AST 20 (15-37) IU/L ALT 27 (14-63) IU/L Alkaline Phosphatase 51 (46-116) U/L Troponin I (0.000-0.056) ng/mL Total Protein 6.6 (6.4-8.2) g/dL Albumin 3.1 L (3.4-5.0) g/dL Globulin 3.5 (2.6-4.0) g/dL Albumin/Globulin Ratio 0.9 (0.9-1.6) Triglycerides 139 (0-200) mg/dL Cholesterol 230 H (50-200) mg/dL LDL Cholesterol, Calc 144 (60-180) mg/dL VLDL Cholesterol 27 (5-55) mg/dL HDL Cholesterol 58 (40-60) mg/dL Cholesterol/HDL Ratio 4.0 (3.3-6.0) TSH 3rd Generation (0.36-3.74) uIU/mL Med Orders - Current: Current Medications Acetaminophen (Tylenol) 650 mg PO Q4H PRN PRN Reason: Pain (Mild 1-3)/fever Docusate Sodium (Colace) 100 mg PO BID PRN PRN Reason: Constipation Heparin Sodium (Porcine) (Heparin Sodium) 5,000 units SUBCUT Q8H [facility] Last Admin: 12/30/18 05:28 Dose: Not Given Sodium Chloride (Normal Saline) 1,000 mls @ 50 mls/hr IV ASDIRECTED VANNESA Last Admin: 12/29/18 18:49 Dose: 50 mls/hr Ondansetron HCl (Zofran Odt) 4 mg PO Q6H PRN PRN Reason: nausea, able to take PO Oxycodone HCl (Oxycodone) 5 mg PO Q4H PRN PRN Reason: Pain (moderate 4-6) Sodium Chloride (Saline Flush) 10 ml FLUSH ASDIRECTED PRN PRN Reason: Keep Vein Open Sodium Chloride (Saline Flush) 2.5 ml FLUSH ASDIRECTED PRN PRN Reason: Keep Vein Open Sodium Chloride (Normal Saline) 10 ml IV ASDIRECTED PRN PRN Reason: IV Use Temazepam (Restoril) 15 mg PO BEDTIME PRN PRN Reason: Sleep Discontinued Medications Aspirin (Aspirin) 324 mg PO ONETIME ONE Stop: 12/29/18 17:31 Last Admin: 12/29/18 17:39 Dose: 324 mg Clonidine HCl (Catapres) 0.1 mg PO ONETIME ONE Stop: 12/30/18 11:59 Last Admin: 12/30/18 12:23 Dose: 0.1 mg - Exam Quality Assessment: No: Supplemental Oxygen General: Alert, Oriented, Cooperative HEENT: Pupils Equal, Pupils Reactive, EOMI, Mucous Membr. Moist/[place] Neck: Supple, Trachea Midline Lungs: Clear to Auscultation, Normal Respiratory Effort Cardiovascular: Regular Rate, Regular Rhythm GI/Abdominal Exam: Normal Bowel Sounds, Soft, Non-Tender, No Distention Back Exam: Normal Inspection, Full Range of Motion Extremities: Normal Inspection, Normal Range of Motion, No Pedal Edema Skin: Warm, Dry, Intact Neurological: No New Focal Deficit Psy/Mental Status: Alert, Normal Affect, Normal Mood - Problem List & Annotations (1) CVA (cerebral vascular accident) SNOMED Code(s): 106771668 Code(s): I63.9 - CEREBRAL INFARCTION, UNSPECIFIED Status: Acute Priority : High Current Visit: Yes Qualifiers: CVA mechanism: embolism Precerebral and cerebral artery: unspecified cerebral artery Qualified Code(s): I63.40 - Cerebral infarction due to embolism of unspecified cerebral artery (2) Hypertension SNOMED Code(s): 83855101 Code(s): I10 - ESSENTIAL (PRIMARY) HYPERTENSION Status: Chronic Priority : High Current Visit: Yes Qualifiers: Hypertension type: essential hypertension Qualified Code(s): I10 - Essential (primary) hypertension (3) Lumbar back pain SNOMED Code(s): 720302601 Code(s): M54.5 - LOW BACK PAIN Status: Chronic Priority: Medium Current Visit: Yes Qualifiers: Chronicity: chronic Back pain laterality: bilateral Sciatica presence: without sciatica Qualified Code(s): M54.5 - Low back pain; G89.29 - Other chronic pain - Problem List Review Problem List Initiated/Reviewed/Updated: Yes - My Orders Last 24 Hours: My Active Orders 12/29/18 18:05 Neuro Check [RC] Q4H Oxygen Therapy [RC] PRN Up With Assistance [RC] ASDIRECTED VTE/DVT Education [RC] PER UNIT ROUTINE Vital Signs [RC] Q4H OT Evaluation and Treatment [CONS] Routine PT Evaluation and Treatment [CONS] Routine CONTRACTS LAW PROFESSOR Evaluation and Treatment [CONS] Routine Acetaminophen [Tylenol] 650 mg PO Q4H PRN Docusate Sodium [Colace] 100 mg PO BID PRN Ondansetron [Zofran ODT] 4 mg PO Q6H PRN Temazepam [Restoril] 15 mg PO BEDTIME PRN oxyCODONE 5 mg PO Q4H PRN Resuscitation Status Routine 12/29/18 18:14 Blood Pressure Mgmt:Acute Stroke [OM.PC] Urgent 12/29/18 18:15 Sodium Chloride 0.9% [Normal Saline] 1,000 ml IV ASDIRECTED 12/29/18 18:16 Blood Pressure [OM.PC] Stat 12/29/18 18:25 Brain w wo Cont [MR] Routine 12/29/18 22:00 Heparin Sodium 5,000 units SUBCUT Q8H 12/29/18 23:47 Telemetry Monitoring [Cardiac Monitoring] [RC] Q8H 12/30/18 13:44 Labetalol [Normodyne] 5 mg IVPUSH Q6H PRN - Plan Plan:: The patient is an 88-year-old lady who had suffered an acute stroke and was admitted to hospitalization yesterday. The patient is currently in a DO NOT INTUBATE/DO NOT RESUSCITATE category. MRI/MRA results are currently pending. The patient's blood pressure had been elevated over the parameters set for prevention of watershed infarcts. The patient also had been started on IV labetalol 20 mg every 6 hours as needed for systolic blood pressure greater than 160. She is also been started on clonidine 0.1 mg as needed for systolic blood pressure greater than 1 60 mmHg. Patient has had physical therapy and also speech therapy who had recommended regular diet for the patient. I've advised the patient and the patient's daughter that the next step in treatment for her is going to be secondary prevention of stroke. The patient will have her neuro checks every continued. The patient is also on heparin for DVT prophylaxis. The patient does not normally take medications and she will be started on low-dose atorvastatin in order to provide secondary prevention of strokes. The patient likely will need to be medicated with Plavix as well. She should be appropriate for discharge in 1-2 days. This will be dependent upon the results of her MRI.
[2018-12-30] MEDS ORDERED: Gadobenate Dimeglumine 529 MG/ML 20 ML SDV IVPUSH STA (15:25)
[2018-12-30] MEDS ORDERED: atorvaSTATin 10 MG Tab PO SCH (21:00)
[2018-12-31] MEDS: Heparin Sodium 5,000 Units/ML Vial SUBCUT SCH (05:58)
[2018-12-31 07:19] VITALS: BP 161/74
[2018-12-31] MEDS ORDERED: Clopidogrel 75 MG Tab PO SCH (09:00)
[2018-12-31] MEDS ORDERED: Aspirin 81 MG Tab.EC PO SCH (09:00)
[2018-12-31] MEDS ORDERED: Hydrochlorothiazide 12.5 MG Cap PO SCH (09:00)
--- NOTE | 2018-12-31 12:11 | PCM.DCSUM1 ---
Discharge Summary - Hospital Course Free Text/Narrative:: Admission diagnosis: #1. TIA #2. HTN #3. HLD #4. L sided weakness #5. R facial droop Discharge diagnosis: #1. TIA #2. HTN #3. HLD Hospital course: 88F brought in by daughter to ER w/ above findings. Patient was admitted for observation, CT head was negative. Patient worked with PT/ Speech and noticed quick resolution of symptoms. She is concerned about going home in terms of taking care of herself, so home health will be ordered. She is to go home on DAPT for 21 days then aspirin moving forward. She was also started on HCTZ and lipitor. Patient encouraged to follow low salt diet, and f/ u with PCP. Return precautions were discussed. Disposition: Home with Home health Homebound - patient is unable to leave the house without assistance. PT to continue to follow for ambulatory dysfunction Dr. Arenas to continue to follow the patient - Discharge Data Discharge Date: 12/31/18 Discharge Disposition: Home, W Home Health Agency 06 Condition: Fair - Patient Summary/Data Consults: Consultations 12/29/18 18:05 OT Evaluation and Treatment [CONS] Routine PT Evaluation and Treatment [CONS] Routine ESTHETICIAN/SPA COORDINATOR Evaluation and Treatment [CONS] Routine - Patient Instructions Diet: Low Sodium Activity: As Tolerated Notify Provider of: Fever, Increased Pain, Nausea and/or Vomiting - Discharge Plan Prescriptions/Med Rec: Aspirin [Adult Low Dose Aspirin EC] 81 mg PO DAILY #30 tablet. atorvaSTATin [Lipitor] 10 mg PO BEDTIME 30 Days #30 tablet Clopidogrel [Plavix] 75 mg PO DAILY 21 Days #21 tablet hydroCHLOROthiazide [Hydrochlorothiazide] 12.5 mg PO DAILY 30 Days #30 cap Home Medications: Home Meds Aspirin [Adult Low Dose Aspirin EC] 81 mg PO DAILY #30 tablet. 12/31/18 [Rx] Clopidogrel [Plavix] 75 mg PO DAILY 21 Days #21 tablet 12/31/18 [Rx] atorvaSTATin [Lipitor] 10 mg PO BEDTIME 30 Days #30 tablet 12/31/18 [Rx] hydroCHLOROthiazide [Hydrochlorothiazide] 12.5 mg PO DAILY 30 Days #30 cap 12/31 [Rx] Patient Handouts: Aspirin, ASA chewable tablets, Clopidogrel tablets, Atorvastatin tablets, Low-Sodium Eating Plan, Transient Ischemic Attack, Hydrochlorothiazide, HCTZ capsules or tablets Referrals: Ravi Aernas MD [Ordering Only Provider] - 01/06/19 9:30 am - Discharge Summary/Plan Comment DC Time >30 min.: No - Patient Data Vitals - Most Recent: Last Vital Signs Temp 36.2 C 12/31/18 07:15 Pulse 72 12/31/18 07:15 Resp 16 12/31/18 07:15 BP 161/74 H 12/31/18 07:15 Pulse Ox 95 12/31/18 07:15 Weight - Most Recent: 62.2 kg I&O - Last 24 hours: Intake & Output 12/30/18 12/31/18 12/31/18 22:59 06:59 14:59 Intake Total 1280 1680 Output Total 1600 1450 Balance -320 230 Med Orders - Current: Current Medications Acetaminophen (Tylenol) 650 mg PO Q4H PRN PRN Reason: Pain (Mild 1-3)/fever Aspirin (Halfprin) 81 mg PO DAILY [facility] Last Admin: 12/31/18 08:30 Dose: 81 mg Atorvastatin Calcium (Lipitor) 10 mg PO BEDTIME [facility] Last Admin: 12/30/18 21:40 Dose: 10 mg Clopidogrel Bisulfate (Plavix) 75 mg PO DAILY [facility] Last Admin: 12/31/18 08:29 Dose: 75 mg Docusate Sodium (Colace) 100 mg PO BID PRN PRN Reason: Constipation Heparin Sodium (Porcine) (Heparin Sodium) 5,000 units SUBCUT Q8H [facility] Last Admin: 12/31/18 05:58 Dose: 5,000 units Hydrochlorothiazide (Hydrochlorothiazide) 12.5 mg PO DAILY [facility] Last Admin: 12/31/18 08:29 Dose: 12.5 mg Sodium Chloride (Normal Saline) 1,000 mls @ 50 mls/hr IV ASDIRECTED [facility] Last Admin: 12/29/18 18:49 Dose: 50 mls/hr Labetalol HCl (Normodyne) 20 mg IVPUSH Q6H PRN; Protocol PRN Reason: Hypertension Last Admin: 12/30/18 17:28 Dose: 4 ml Ondansetron HCl (Zofran Odt) 4 mg PO Q6H PRN PRN Reason: nausea, able to take PO Oxycodone HCl (Oxycodone) 5 mg PO Q4H PRN PRN Reason: Pain (moderate 4-6) Sodium Chloride (Saline Flush) 10 ml FLUSH ASDIRECTED PRN PRN Reason: Keep Vein Open Sodium Chloride (Saline Flush) 2.5 ml FLUSH ASDIRECTED PRN PRN Reason: Keep Vein Open Sodium Chloride (Normal Saline) 10 ml IV ASDIRECTED PRN PRN Reason: IV Use Temazepam (Restoril) 15 mg PO BEDTIME PRN PRN Reason: Sleep Discontinued Medications Aspirin (Aspirin) 324 mg PO ONETIME ONE Stop: 12/29/18 17:31 Last Admin: 12/29/18 17:39 Dose: 324 mg Clonidine HCl (Catapres) 0.1 mg PO ONETIME ONE Stop: 12/30/18 11:59 Last Admin: 12/30/18 12:23 Dose: 0.1 mg Gadobenate Dimeglumine (Multihance) 20 ml IVPUSH ONETIME STA Stop: 12/30/18 15:26 Last Admin: 12/30/18 15:26 Dose: 10 ml Labetalol HCl (Normodyne) 5 mg IVPUSH Q6H PRN; Protocol PRN Reason: Hypertension Last Admin: 12/30/18 13:57 Dose: 1 ml
== END 2018-12-31 13:15 | disposition home health service (06) | DRG 69 ==
LOC: MW.ED 16:51 → MW.MS 18:18
PROVIDERS: ADMIT Internal Medicine; ATTEND Internal Medicine
DX: G45.9 Transient cerebral ischemic attack, unspecified (principal); I10 Essential (primary) hypertension; Z66 Do not resuscitate; E78.5 Hyperlipidemia, unspecified; G89.29 Other chronic pain; F41.9 Anxiety disorder, unspecified; M54.5 Low back pain; Z87.440 Personal history of urinary (tract) infections; Z88.7 Allergy status to serum and vaccine
CPT/HCPCS: 36415; 70450; 70450-26; 70553; 80053; 80061; 84443; 84484; 85025; 85610; 85730; 92610-GN; 93005; 96360; 97110-GP; 97161-GP; 99285-25; A9270-GY; A9577; J1644; J3490; J7040

== ENCOUNTER 2019-01-01 12:20 | Emergency (ER) | payer MEDICARE, OTHER ==
[2019-01-01] MEDS ORDERED: Sodium Chloride 0.9% 10 ML Syringe FLUSH PRN (12:27)
[2019-01-01] MEDS ORDERED: Sodium Chloride 0.9% 2.5 ML Syringe FLUSH PRN (12:27)
--- NOTE | 2019-01-01 12:31 | EDM.PDOC ---
ED HPI GENERAL MEDICAL PROBLEM - General Chief Complaint: Cardiovascular Problem Stated Complaint: HYPERTENSION Time Seen by Provider: 01/01/19 12:27 Source of Information: Reports: Patient, Old Records History Limitations: Reports: No Limitations - History of Present Illness INITIAL COMMENTS - FREE TEXT/NARRATIVE: HISTORY AND PHYSICAL: History of present illness: Patient is an 88-year-old female who presents to the emergency room by EMS with complaints of weakness. Patient was admitted to the hospital on 12/30/2018 for CVA, and was discharged yesterday. She reports she had felt overall well until about 10:30. The home health nurse had gone to her house and they were talking, suddenly she started to feel flushed and a tingling sensation throughout her body. She reports that the home health nurse states she looked "unwell". She states she had generalized weakness. Blood pressure was checked, reportedly was 220/110's. Home health nurse requested she come to the ER for evaluation. Patient states that currently she feels "fine" but was concerned of her blood pressure. Denies any recent injury, trauma or falls. Patient denies any fever, chills, headache, change in vision, syncope or near syncope. She denies any one-sided weakness, deficits, or slurred speech. Denies any chest pain, back pain, shortness of breath or cough. Denies any abdominal pain, nausea, vomiting, diarrhea, constipation or dysuria. Has not noted any blood in urine or stool. Patient has been eating and drinking appropriately. Review of systems: As per history of present illness and below otherwise all systems reviewed and negative. Past medical history: As per history of present illness and as reviewed below otherwise noncontributory. Surgical history: As per history of present illness and as reviewed below otherwise noncontributory. Social history: See social history for further information Family history: As per history of present illness and as reviewed below otherwise noncontributory. Physical exam: General: Well-developed and well-nourished 88-year-old female. Alert and oriented. Nontoxic appearing and in no acute distress. HEENT: Atraumatic, normocephalic, pupils equal and reactive bilaterally, negative for conjunctival pallor or scleral icterus, mucous membranes moist, TMs normal bilaterally, throat clear, neck supple, nontender, trachea midline. No drooling or trismus noted. No meningeal signs. No hot potato voice noted. Lungs: Clear to auscultation, breath sounds equal bilaterally, chest nontender. Heart: S1S2, regular rate and rhythm without overt murmur Abdomen: Soft, nondistended, nontender. Negative for masses. Negative for costovertebral tenderness. Skin: Intact, warm, dry. No lesions or rashes noted. Extremities: Atraumatic, moves all extremities per self without difficulty or deficits, negative for cords or calf pain. Neurovascular unremarkable. Neuro: Awake, alert, oriented. Cranial nerves II through XII unremarkable. Cerebellum unremarkable. Motor and sensory unremarkable throughout. Exam nonfocal. Notes: NIH 15, GCS 15. EKG compared with 07/26/18, left bundle branch block noted at that time. No acute findings. Patient is agreeable to lab work and repeat head CT. Lab work is unremarkable. Head CT and chest x-ray are unremarkable. I did talk with the patient about readmission, she declines. She states she feels "fine" and would like to be discharged to home. She is aware of the risks versus benefits. We discussed symptoms that would prompt her to return to the emergency room were reviewed and discussed. Supportive care measures were reviewed and discussed. Voices understanding and is agreeable to plan of care. Denies any further questions or concerns at this time. Diagnostics: CBC, CMP, EKG, INR, one view chest, troponin, UA, head CT Therapeutics: Saline lock Prescription: None Impression: Weakness History of hypertension Plan: 1. Continue taking her home medications as prescribed. 2. Follow-up with your primary care provider for further evaluation and management of your high blood pressure readings. 3. Return to the ED as needed and as discussed. Definitive disposition and diagnosis as appropriate pending reevaluation and review of above. - Related Data Allergies Allergy/AdvReac Type Severity Reaction Status Date / Time Tetanus Vaccines and Toxoid Allergy Other Verified 12/29/18 17:52 [Tetanus Vaccines & Toxoid] Home Meds: Home Meds Aspirin [Adult Low Dose Aspirin EC] 81 mg PO DAILY #30 tablet. 12/31/18 [Rx] Clopidogrel [Plavix] 75 mg PO DAILY 21 Days #21 tablet 12/31/18 [Rx] atorvaSTATin [Lipitor] 10 mg PO BEDTIME 30 Days #30 tablet 12/31/18 [Rx] hydroCHLOROthiazide [Hydrochlorothiazide] 12.5 mg PO DAILY 30 Days #30 cap 12/31 [Rx] Past Medical History HEENT History: Reports: None Cardiovascular History: Reports: Hypertension Respiratory History: Reports: None Gastrointestinal History: Reports: None Genitourinary History: Reports: Urinary Incontinence, UTI, Recurrent SUCTION [employer] History: Reports: Musculoskeletal History: Reports: Back Pain, Chronic Neurological History: Reports: None Psychiatric History: Reports: Anxiety Endocrine/Metabolic History: Reports: None Hematologic History: Reports: None Immunologic History: Reports: None Oncologic (Cancer) History: Reports: None Dermatologic History: Reports: None - Infectious Disease History Infectious Disease History: Reports: Chicken Pox, Measles - Past Surgical History Head Surgeries/Procedures: Reports: None HEENT Surgical History: Reports: None Cardiovascular Surgical History: Reports: None Respiratory Surgical History: Reports: None GI Surgical History: Reports: None Female Surgical History: Reports: None Endocrine Surgical History: Reports: None Neurological Surgical History: Reports: None Musculoskeletal Surgical History: Reports: None Dermatological Surgical History: Reports: None Social & Family History - Family History Family Medical History: Noncontributory - Caffeine Use Caffeine Use: Reports: None - Living Situation & Occupation Living situation: Reports: , Alone Occupation: Retired ED ROS GENERAL - Review of Systems Review Of Systems: ROS reveals no pertinent complaints other than HPI. ED EXAM, GENERAL - Physical Exam Exam: See Below (See dictation) Course - Vital Signs Last Recorded V/S: Last Vital Signs Temp 97.3 F 01/01/19 12:27 Pulse 75 01/01/19 13:37 Resp 17 01/01/19 13:37 BP 159/61 H 01/01/19 13:37 Pulse Ox 95 01/01/19 13:37 - Orders/Labs/Meds Orders: Active Orders 24 hr Category Date Time Status EKG Documentation Completion [RC] STAT Care 01/01/19 12:27 Active Saline Lock Insert [OM.PC] Stat Oth 01/01/19 12:27 Ordered Labs: Laboratory Tests 01/01/19 01/01/19 01/01/19 Range/Units 12:33 12:33 12:33 WBC 6.49 (4.0-11.0) K/uL RBC 5.23 (4.30-5.90) M/uL Hgb 14.4 (12.0-16.0) g/dL Hct 44.0 (36.0-46.0) % MCV 84.1 (80.0-98.0) fL MCH 27.5 (27.0-32.0) pg MCHC 32.7 (31.0-37.0) g/dL RDW Std Deviation 45.3 (28.0-62.0) fl RDW Coeff of Tyron 15 (11.0-15.0) % Plt Count 178 (150-400) K/uL MPV 10.70 (7.40-12.00) fL Neut % (Auto) 56.4 (48.0-80.0) % Lymph % (Auto) 29.1 (16.0-40.0) % Bryan % (Auto) 10.0 (0.0-15.0) % Eos % (Auto) 4.2 (0.0-7.0) % Baso % (Auto) 0.3 (0.0-1.5) % Neut # (Auto) 3.7 (1.4-5.7) K/uL Lymph # (Auto) 1.9 (0.6-2.4) K/uL Bryan # (Auto) 0.7 (0.0-0.8) K/uL Eos # (Auto) 0.3 (0.0-0.7) K/uL Baso # (Auto) 0.0 (0.0-0.1) K/uL Nucleated RBC % 0.0 /100WBC Nucleated RBCs # 0 K/uL INR 0.99 Sodium 140 (136-145) mmol/L Potassium 3.9 (3.5-5.1) mmol/L Chloride 103 (98-107) mmol/L Carbon Dioxide 27.3 (21.0-32.0) mmol/L BUN 21 H (7.0-18.0) mg/dL Creatinine 1.0 (0.6-1.0) mg/dL Est Cr Clr Drug Dosing TNP Estimated GFR (MDRD) 52.6 ml/min Glucose 117 H (74-106) mg/dL Calcium 9.5 (8.5-10.1) mg/dL Total Bilirubin 0.6 (0.2-1.0) mg/dL AST 24 (15-37) IU/L ALT 30 (14-63) IU/L Alkaline Phosphatase 57 (46-116) U/L Troponin I < 0.050 (0.000-0.056) ng/mL Total Protein 7.6 (6.4-8.2) g/dL Albumin 3.7 (3.4-5.0) g/dL Globulin 3.9 (2.6-4.0) g/dL Albumin/Globulin Ratio 0.9 (0.9-1.6) Urine Color Urine Appearance Urine pH (5.0-8.0) Ur Specific [place] (1.001-1.035) Urine Protein (NEGATIVE) mg/dL Urine Glucose (UA) (NEGATIVE) mg/dL Urine Ketones (NEGATIVE) mg/dL Urine Occult Blood (NEGATIVE) Urine Nitrite (NEGATIVE) Urine Bilirubin (NEGATIVE) Urine Urobilinogen (<2.0) EU/dL Ur Leukocyte Esterase (NEGATIVE) 01/01/19 Range/Units 12:55 WBC (4.0-11.0) K/uL RBC (4.30-5.90) M/uL Hgb (12.0-16.0) g/dL Hct (36.0-46.0) % MCV (80.0-98.0) fL MCH (27.0-32.0) pg MCHC (31.0-37.0) g/dL RDW Std Deviation (28.0-62.0) fl RDW Coeff of Tyron (11.0-15.0) % Plt Count (150-400) K/uL MPV (7.40-12.00) fL Neut % (Auto) (48.0-80.0) % Lymph % (Auto) (16.0-40.0) % Bryan % (Auto) (0.0-15.0) % Eos % (Auto) (0.0-7.0) % Baso % (Auto) (0.0-1.5) % Neut # (Auto) (1.4-5.7) K/uL Lymph # (Auto) (0.6-2.4) K/uL Bryan # (Auto) (0.0-0.8) K/uL Eos # (Auto) (0.0-0.7) K/uL Baso # (Auto) (0.0-0.1) K/uL Nucleated RBC % /100WBC Nucleated RBCs # K/uL INR Sodium (136-145) mmol/L Potassium (3.5-5.1) mmol/L Chloride (98-107) mmol/L Carbon Dioxide (21.0-32.0) mmol/L BUN (7.0-18.0) mg/dL Creatinine (0.6-1.0) mg/dL Est Cr Clr Drug Dosing Estimated GFR (MDRD) ml/min Glucose (74-106) mg/dL Calcium (8.5-10.1) mg/dL Total Bilirubin (0.2-1.0) mg/dL AST (15-37) IU/L ALT (14-63) IU/L Alkaline Phosphatase (46-116) U/L Troponin I (0.000-0.056) ng/mL Total Protein (6.4-8.2) g/dL Albumin (3.4-5.0) g/dL Globulin (2.6-4.0) g/dL Albumin/Globulin Ratio (0.9-1.6) Urine Color YELLOW Urine Appearance CLEAR Urine pH 5.5 (5.0-8.0) Ur Specific [place] <= 1.005 (1.001-1.035) Urine Protein NEGATIVE (NEGATIVE) mg/dL Urine Glucose (UA) NEGATIVE (NEGATIVE) mg/dL Urine Ketones NEGATIVE (NEGATIVE) mg/dL Urine Occult Blood NEGATIVE (NEGATIVE) Urine Nitrite NEGATIVE (NEGATIVE) Urine Bilirubin NEGATIVE (NEGATIVE) Urine Urobilinogen 0.2 (<2.0) EU/dL Ur Leukocyte Esterase NEGATIVE (NEGATIVE) Meds: Medications Discontinued Medications Generic Name Dose Route Start Last Admin Trade Name Freq PRN Reason Stop Dose Admin Sodium Chloride 10 ml 01/01/19 12:27 01/01/19 13:05 Saline Flush FLUSH 10 ml ASDIRECTED PRN Administration Keep Vein Open Sodium Chloride 2.5 ml 01/01/19 12:27 01/01/19 13:05 Saline Flush FLUSH 2.5 ml ASDIRECTED PRN Administration Keep Vein Open Departure - Departure Time of Disposition: 14:58 Disposition: Home, Self-Care 01 Clinical Impression: History of hypertension, Weakness Instructions: Weakness, [id number] Referrals: PCP,None [Ordering Only Provider] - Forms: ED Department Discharge Additional Instructions: The following information is given to patients seen in the emergency department who are being discharged to home. This information is to outline your options for follow-up care. We provide all patients seen in our emergency department with a follow-up referral. The need for follow-up, as well as the timing and circumstances, are variable depending upon the specifics of your emergency department visit. If you don't have a primary care physician on staff, we will provide you with a referral. We always advise you to contact your personal physician following an emergency department visit to inform them of the circumstance of the visit and for follow-up with them and/or the need for any referrals to a consulting specialist. The emergency department will also refer you to a specialist when appropriate. This referral assures that you have the opportunity for follow-up care with a specialist. All of these measure are taken in an effort to provide you with optimal care, which includes your follow-up. Under all circumstances we always encourage you to contact your private physician who remains a resource for coordinating your care. When calling for follow-up care, please make the office aware that this follow-up is from your recent emergency room visit. If for any reason you are refused follow-up, please contact the [facility] at and asked to speak to the emergency department charge nurse. [facility] [address] [place] [id number] [place] [address] 1. Continue taking her home medications as prescribed. 2. Follow-up with your primary care provider for further evaluation and management of your high blood pressure readings. 3. Return to the ED as needed and as discussed. - My Orders Last 24 Hours: My Active Orders 01/01/19 12:27 EKG Documentation Completion [RC] STAT Saline Lock Insert [OM.PC] Stat - Assessment/Plan Last 24 Hours: My Active Orders 01/01/19 12:27 EKG Documentation Completion [RC] STAT Saline Lock Insert [OM.PC] Stat
--- NOTE | 2019-01-01 12:55 | CR ---
INDICATION: dizzy Single AP view Findings: The lungs are clear. Pulmonary vascularity, mediastinum and cardiac silhouette are within normal limits. No effusions and no pneumothorax. Right 7th and 8th likely chronic rib fracture deformities. Impression: No evidence of acute cardiopulmonary disease. Dictated by: Ghassan Smith MD @ 01/01/2019 12:54:01 (Electronically Signed)
[2019-01-01 13:07] LABS: CHLORIDE,CL 103 mmol/L (98-107); SODIUM,NA 140 mmol/L (136-145)
--- NOTE | 2019-01-01 13:13 | CT ---
INDICATION: Pt w/dizziness and confusion. COMPARISON: previous scan done on 12-29-18. MRI December 30, 2018 CT SCAN HEAD WITHOUT CONTRAST TECHNIQUE: Direct axial non-contrast images of the head from foramen magnum to vertex are provided. FINDINGS: Axial images of the brain demonstrate a normal for age appearance of the ventricles, sulci and basal cistern. There is some mild diffuse atrophy. There is some patchy periventricular low attenuation suggesting small vessel ischemic changes. There is no evidence of intracranial hemorrhage, infarct, mass or mass effect. Dumont-white differentiation is normal throughout. Visualized mastoid air cells and middle ear cavities are clear. The visualized paranasal sinuses are clear. The orbits are symmetric. CONCLUSION: No acute findings on unenhanced head CT. Please note that all CT scans at this facility use dose modulation, iterative reconstruction, and/or weight-based dosing when appropriate to reduce radiation dose to as low as reasonably achievable. Dictated by: Ghassan Smith MD @ 01/01/2019 13:11:48 (Electronically Signed)
[2019-01-01 13:38] VITALS: BP 159/61
== END 2019-01-01 13:38 | disposition home or self-care (01) ==
LOC: MW.ED 12:20
DX: R53.1 Weakness (principal); I10 Essential (primary) hypertension; Z88.7 Allergy status to serum and vaccine; Z79.82 Long term (current) use of aspirin; Z79.899 Other long term (current) drug therapy
CPT/HCPCS: 36415; 70450; 70450-26; 71045; 71045-26; 80053; 81003; 84484; 85025; 85610; 93005; 99284-25

== ENCOUNTER 2020-03-25 15:34 | Emergency (ER) | payer MEDICARE, OTHER ==
[2020-03-25] MEDS ORDERED: Sodium Chloride 0.9% 2.5 ML Syringe FLUSH PRN (15:46)
[2020-03-25] MEDS ORDERED: Sodium Chloride 0.9% 10 ML Syringe FLUSH PRN (15:46)
--- NOTE | 2020-03-25 16:04 | EDM.PDOC ---
ED HPI GENERAL MEDICAL PROBLEM - General Chief Complaint: General Stated Complaint: DIZZY AND FELL Time Seen by Provider: 03/25/20 15:35 Source of Information: Reports: Patient History Limitations: Reports: No Limitations - History of Present Illness INITIAL COMMENTS - FREE TEXT/NARRATIVE: HISTORY AND PHYSICAL: History of present illness: Patient is an 89-year-old female who presents to the ED today with concern of dizziness that started this morning. Patient states she has had 2 episodes of dizziness to where she has been unable to walk today. Patient states the first episode was about 6 this morning. Patient states she had another episode just before coming to the ED. Patient states when she felt dizzy she went to go stand up to get the phone and fell back onto the couch. Patient states she did not fall to the ground and did not hit her head or lose consciousness. Patient states she has a history of high blood pressure and is unsure of any other health history but states that she decided not to take any of her medications and has completely come off all medications several months ago. Patient states that at this time she is currently not dizzy but she does feel weak and does not feel well. Patient denies any other symptoms or concerns. Patient denies fever, chills, chest pain, shortness of breath, or cough. Denies headache, neck stiff ness, change in vision, syncope,. Denies nausea, vomiting, abdominal pain, diarrhea, constipation, or dysuria. Has not noted any blood in urine or stool. Patient has been eating and drinking appropriately. Review of systems: As per history of present illness and below otherwise all systems reviewed and negative. Past medical history: As per history of present illness and as reviewed below otherwise noncont ributory. Surgical history: As per history of present illness and as reviewed below otherwise noncontributory. Social history: See social history for further information Family history: As per history of present illness and as reviewed below otherwise noncontributory. Physical exam: General: Patient is alert, oriented, and in no acute distress. Patient sitting comfortably on exam table. HEENT: Atraumatic, normocephalic, pupils equal and reactive bilaterally, negative for conjunctival pallor or scleral icterus, mucous membranes moist, TMs normal bilaterally, throat clear, neck supple, nontender, trachea midline. No drooling or trismus noted. No meningeal signs. No hot potato voice noted. Lungs: Clear to auscultation, breath sounds equal bilaterally, chest nontender. Heart: S1S2, regular rate and rhythm without overt murmur Abdomen: Soft, nondistended, nontender. Negative for masses or hepatosplenomegaly. Negative for costovertebral tenderness. Pelvis: Stable nontender. Genitourinary: Deferred. Rectal: Deferred. Skin: Intact, warm, dry. No lesions or rashes noted. Extremities: Atraumatic, negative for cords or calf pain. Neurovascular unremarkable. Neuro: Awake, alert, oriented. Cranial nerves II through XII unremarkable. Cerebellum unremarkable. Motor and sensory unremarkable throughout. Exam nonfocal. Notes: EKG 's reviewed and compared to prior along with Dr. Carrizales. No acute changes seen from prior and no acute changes on repeat EKG. Transfer to [facility] in [place] for heart cath consideration was thoroughly discussed with patient and she states that she would not like to do this at this time. Admission was strongly encouraged to patient but she declines at this time requesting discharge to home. All risks versus benefits thoroughly discussed with patient including and patient expresses understanding still requesting discharge home. Patient states that her desire would be to pass away at home and she has no desire to stay in the hospital or proceed any further care in regards to her symptoms and diagnostic findings today. Patient states she does not have any blood pressure medications at home as she decided to stop taking these many months ago. Patient states she would be willing to take a blood pressure medication again. I will start patient on Lisinopril 10mg PO daily and encourage close follow up with her primary care provider along with close monitoring of blood pressure at home. Patient states she will call her PCP, Dr. Miguel, tomorrow for an appointment. Patient agrees to signing against medical advice. Voices understanding and is agreeable to plan of care. Denies any further questions or concerns at this time. Diagnostics: CBC, CMP, UA, EKG x 2, CXR, Troponin, Head CT Therapeutics: Labetalol Prescription: Lisinopril PO Impression: Hypertensive urgency Elevated troponin Dizziness Against medical advice Plan: 1. Follow up with your primary care provider, Dr. Clarke tomorrow as discussed. Call his clinic in the morning to establish an appointment time. 2. Return to the ED as needed and as discussed. Definitive disposition and diagnosis as appropriate pending reevaluation and review of above. Generalized Pain Score (Numeric/FACES): 5 - Related Data Allergies Allergy/AdvReac Type Severity Reaction Status Date / Time Tetanus Vaccines and Toxoid Allergy Other Verified 03/25/20 15:53 [Tetanus Vaccines & Toxoid] Home Meds: Home Meds Aspirin [Adult Low Dose Aspirin EC] 81 mg PO DAILY #30 tablet. 12/31/18 [Rx] Clopidogrel [Plavix] 75 mg PO DAILY 21 Days #21 tablet 12/31/18 [Rx] atorvaSTATin [Lipitor] 10 mg PO BEDTIME 30 Days #30 tablet 12/31/18 [Rx] hydroCHLOROthiazide [Hydrochlorothiazide] 12.5 mg PO DAILY 30 Days #30 cap 12/31/18 [Rx] lisinopriL [Lisinopril] 10 mg PO DAILY 30 Days #30 tablet 03/25/20 [Rx] Past Medical History HEENT History: Reports: None Cardiovascular History: Reports: Hypertension Respiratory History: Reports: None Gastrointestinal History: Reports: None Genitourinary History: Reports: Urinary Incontinence, UTI, Recurrent [employer] History: Reports: Musculoskeletal History: Reports: Back Pain, Chronic Neurological History: Reports: None Psychiatric History: Reports: Anxiety Endocrine/Metabolic History: Reports: None Hematologic History: Reports: None Immunologic History: Reports: None Oncologic (Cancer) History: Reports: None Dermatologic History: Reports: None - Infectious Disease History Infectious Disease History: Reports: Chicken Pox, Measles - Past Surgical History Head Surgeries/Procedures: Reports: None HEENT Surgical History: Reports: None Cardiovascular Surgical History: Reports: None Respiratory Surgical History: Reports: None GI Surgical History: Reports: None Female Surgical History: Reports: None Endocrine Surgical History: Reports: None Neurological Surgical History: Reports: None Musculoskeletal Surgical History: Reports: None Dermatological Surgical History: Reports: None Social & Family History - Family History Family Medical History: Noncontributory - Caffeine Use Caffeine Use: Reports: None - Living Situation & Occupation Living situation: Reports: , Alone Occupation: Retired ED ROS GENERAL - Review of Systems Review Of Systems: Comprehensive ROS is negative, except as noted in HPI. ED EXAM, GENERAL - Physical Exam Exam: See Below (see dictation) Course - Vital Signs Last Recorded V/S: Last Vital Signs Temp 96.3 F L 03/25/20 15:55 Pulse 78 03/25/20 17:54 Resp 16 03/25/20 17:54 BP 197/88 H 03/25/20 17:54 Pulse Ox 96 03/25/20 17:54 - Orders/Labs/Meds Orders: Active Orders 24 hr Category Date Time Status Cardiac Monitoring [RC] . DIRECTED Care 03/25/20 15:59 Active EKG Documentation Completion [RC] STAT Care 03/25/20 15:46 Active Sodium Chloride 0.9% [Saline Flush] Med 03/25/20 15:46 Active 10 ml FLUSH ASDIRECTED PRN Sodium Chloride 0.9% [Saline Flush] Med 03/25/20 15:46 Active 2.5 ml FLUSH ASDIRECTED PRN Saline Lock Insert [OM.PC] Stat Oth 03/25/20 15:46 Ordered Medication Orders Sodium Chloride (Saline Flush) 10 ml FLUSH ASDIRECTED PRN PRN Reason: Keep Vein Open Last Admin: 03/25/20 16:14 Dose: 10 ml Documented by: [id number] Sodium Chloride (Saline Flush) 2.5 ml FLUSH ASDIRECTED PRN PRN Reason: Keep Vein Open Last Admin: 03/25/20 16:14 Dose: 2.5 ml Documented by: [id number] Labs: Laboratory Tests 03/25/20 03/25/20 03/25/20 Range/Units 15:45 16:10 16:10 WBC 7.11 (4.0-11.0) K/uL RBC 5.42 (4.30-5.90) M/uL Hgb 14.7 (12.0-16.0) g/dL Hct 45.0 (36.0-46.0) % MCV 83.0 (80.0-98.0) fL MCH 27.1 (27.0-32.0) pg MCHC 32.7 (31.0-37.0) g/dL RDW Std Deviation 45.4 (28.0-62.0) fl RDW Coeff of Tyron 15 (11.0-15.0) % Plt Count 169 (150-400) K/uL MPV 10.40 (7.40-12.00) fL Neut % (Auto) 60.8 (48.0-80.0) % Lymph % (Auto) 27.3 (16.0-40.0) % [place] % (Auto) 9.3 (0.0-15.0) % Eos % (Auto) 2.3 (0.0-7.0) % Baso % (Auto) 0.3 (0.0-1.5) % Neut # (Auto) 4.3 (1.4-5.7) K/uL Lymph # (Auto) 1.9 (0.6-2.4) K/uL [place] # (Auto) 0.7 (0.0-0.8) K/uL Eos # (Auto) 0.2 (0.0-0.7) K/uL Baso # (Auto) 0.0 (0.0-0.1) K/uL Nucleated RBC % 0.0 /100WBC Nucleated RBCs # 0 K/uL Sodium 137 (136-145) mmol/L Potassium 4.0 (3.5-5.1) mmol/L Chloride 102 (98-107) mmol/L Carbon Dioxide 27.2 (21.0-32.0) mmol/L BUN 21 H (7.0-18.0) mg/dL Creatinine 0.9 (0.6-1.0) mg/dL Est Cr Clr Drug Dosing 31.63 mL/min Estimated GFR (MDRD) 59.2 ml/min Glucose 103 (74-106) mg/dL Calcium 8.6 (8.5-10.1) mg/dL Total Bilirubin 0.4 (0.2-1.0) mg/dL AST 29 (15-37) IU/L ALT 35 (14-63) IU/L Alkaline Phosphatase 64 (46-116) U/L Troponin I (0.000-0.056) ng/mL Total Protein 7.3 (6.4-8.2) g/dL Albumin 3.8 (3.4-5.0) g/dL Globulin 3.5 (2.6-4.0) g/dL Albumin/Globulin Ratio 1.1 (0.9-1.6) Lipase (73-393) U/L Urine Color YELLOW Urine Appearance CLEAR Urine pH 6.0 (5.0-8.0) Ur Specific [place] 1.010 (1.001-1.035) Urine Protein NEGATIVE (NEGATIVE) mg/dL Urine Glucose (UA) NEGATIVE (NEGATIVE) mg/dL Urine Ketones NEGATIVE (NEGATIVE) mg/dL Urine Occult Blood NEGATIVE (NEGATIVE) Urine Nitrite NEGATIVE (NEGATIVE) Urine Bilirubin NEGATIVE (NEGATIVE) Urine Urobilinogen 0.2 (<2.0) EU/dL Ur Leukocyte Esterase NEGATIVE (NEGATIVE) 03/25/20 Range/Units 16:10 WBC (4.0-11.0) K/uL RBC (4.30-5.90) M/uL Hgb (12.0-16.0) g/dL Hct (36.0-46.0) % MCV (80.0-98.0) fL MCH (27.0-32.0) pg MCHC (31.0-37.0) g/dL RDW Std Deviation (28.0-62.0) fl RDW Coeff of Tyron (11.0-15.0) % Plt Count (150-400) K/uL MPV (7.40-12.00) fL Neut % (Auto) (48.0-80.0) % Lymph % (Auto) (16.0-40.0) % [place] % (Auto) (0.0-15.0) % Eos % (Auto) (0.0-7.0) % Baso % (Auto) (0.0-1.5) % Neut # (Auto) (1.4-5.7) K/uL Lymph # (Auto) (0.6-2.4) K/uL [place] # (Auto) (0.0-0.8) K/uL Eos # (Auto) (0.0-0.7) K/uL Baso # (Auto) (0.0-0.1) K/uL Nucleated RBC % /100WBC Nucleated RBCs # K/uL Sodium (136-145) mmol/L Potassium (3.5-5.1) mmol/L Chloride (98-107) mmol/L Carbon Dioxide (21.0-32.0) mmol/L BUN (7.0-18.0) mg/dL Creatinine (0.6-1.0) mg/dL Est Cr Clr Drug Dosing mL/min Estimated GFR (MDRD) ml/min Glucose (74-106) mg/dL Calcium (8.5-10.1) mg/dL Total Bilirubin (0.2-1.0) mg/dL AST (15-37) IU/L ALT (14-63) IU/L Alkaline Phosphatase (46-116) U/L Troponin I 0.073 H* (0.000-0.056) ng/mL Total Protein (6.4-8.2) g/dL Albumin (3.4-5.0) g/dL Globulin (2.6-4.0) g/dL Albumin/Globulin Ratio (0.9-1.6) Lipase 119 (73-393) U/L Urine Color Urine Appearance Urine pH (5.0-8.0) Ur Specific [place] (1.001-1.035) Urine Protein (NEGATIVE) mg/dL Urine Glucose (UA) (NEGATIVE) mg/dL Urine Ketones (NEGATIVE) mg/dL Urine Occult Blood (NEGATIVE) Urine Nitrite (NEGATIVE) Urine Bilirubin (NEGATIVE) Urine Urobilinogen (<2.0) EU/dL Ur Leukocyte Esterase (NEGATIVE) Meds: Medications Generic Name Dose Route Start Last Admin Trade Name Freq PRN Reason Stop Dose Admin Sodium Chloride 10 ml 03/25/20 15:46 03/25/20 16:14 Saline Flush FLUSH 10 ml ASDIRECTED PRN Administration Keep Vein Open Sodium Chloride 2.5 ml 03/25/20 15:46 03/25/20 16:14 Saline Flush FLUSH 2.5 ml ASDIRECTED PRN Administration Keep Vein Open Discontinued Medications Generic Name Dose Route Start Last Admin Trade Name Freq PRN Reason Stop Dose Admin Aspirin 324 mg 03/25/20 17:49 03/25/20 18:00 Aspirin PO 03/25/20 17:50 324 mg ONETIME ONE Administration Labetalol HCl 20 mg 03/25/20 17:01 03/25/20 17:32 Normodyne IVPUSH 03/25/20 17:02 20 mg ONETIME ONE Administration Protocol Departure - Departure Time of Disposition: 18:11 Disposition: Against Medical Advice 07 Clinical Impression: Hypertensive urgency, Elevated troponin, Dizziness - Discharge Information Referrals: Ravi Arenas MD [Primary Care Provider] - Forms: ED Department Discharge Additional Instructions: The following information is given to patients seen in the emergency department who are being discharged to home. This information is to outline your options for follow-up care. We provide all patients seen in our emergency department with a follow-up referral. The need for follow-up, as well as the timing and circumstances, are variable depending upon the specifics of your emergency department visit. If you don't have a primary care physician on staff, we will provide you with a referral. We always advise you to contact your personal physician following an emergency department visit to inform them of the circumstance of the visit and for follow-up with them and/or the need for any referrals to a consulting specialist. The emergency department will also refer you to a specialist when appropriate. This referral assures that you have the opportunity for follow-up care with a specialist. All of these measure are taken in an effort to provide you with optimal care, which includes your follow-up. Under all circumstances we always encourage you to contact your private physician who remains a resource for coordinating your care. When calling for follow-up care, please make the office aware that this follow-up is from your recent emergency room visit. If for any reason you are refused follow-up, please contact the [facility] Emergency Department at and asked to speak to the emergency department charge nurse. [facility] [address] [place] [address] [place] [address] 1. Follow up with your primary care provider, Dr. Clarke tomorrow as discussed. Call his clinic in the morning to establish an appointment time. 2. Return to the ED as needed and as discussed. Sepsis Event Note (ED) - Focused Exam Vital Signs: Vital Signs Temp Pulse Resp BP Pulse Ox 03/25/20 17:54 78 16 197/88 H 96 03/25/20 17:09 86 16 208/90 H 98 03/25/20 15:55 96.3 F L 111 H 15 215/112 H 92 L - My Orders Last 24 Hours: My Active Orders 03/25/20 15:46 EKG Documentation Completion [RC] STAT Sodium Chloride 0.9% [Saline Flush] 10 ml FLUSH ASDIRECTED PRN Sodium Chloride 0.9% [Saline Flush] 2.5 ml FLUSH ASDIRECTED PRN Saline Lock Insert [OM.PC] Stat 03/25/20 15:59 Cardiac Monitoring [RC] . DIRECTED - Assessment/Plan Last 24 Hours: My Active Orders 03/25/20 15:46 EKG Documentation Completion [RC] STAT Sodium Chloride 0.9% [Saline Flush] 10 ml FLUSH ASDIRECTED PRN Sodium Chloride 0.9% [Saline Flush] 2.5 ml FLUSH ASDIRECTED PRN Saline Lock Insert [OM.PC] Stat 03/25/20 15:59 Cardiac Monitoring [RC] . DIRECTED
[2020-03-25 16:42] LABS: CARBON DIOXIDE,CO2 27.2 mmol/L (21.0-32.0)
[2020-03-25] MEDS ORDERED: Labetalol 100 MG/20 ML MDV IVPUSH ONE (17:01)
--- NOTE | 2020-03-25 17:40 | CT ---
Head CT Technique: Multiple axial sections through the brain were obtained. Intravenous contrast was not utilized. Comparison: Prior head CT study of 01/01/19. Findings: Ventricles along with basal cisterns and sulci the convexities are moderately prominent. No abnormal parenchymal densities are seen. No evidence of intracranial hemorrhage. No midline shift or mass-effect is seen. Hyperostosis internal frontalis is noted. This is not an acute finding. No acute calvarial abnormality is seen. Visualized mastoid and paranasal sinuses show nothing acute. No acute calvarial finding is seen. Impression: 1. Generalized atrophy. 2. Nothing acute is appreciated on noncontrast head CT exam. 3. Nothing acute is seen from previous study. Diagnostic code #2 This report was dictated in MDT
--- NOTE | 2020-03-25 17:43 | CR ---
Chest: Upright view of the chest was obtained in AP projection. Comparison: No prior chest imaging is available. Heart size and mediastinum are within normal limits for AP technique. Several old healed posterior right rib fractures are seen within the upper right chest as well as posterolateral rib fracture within the right 7th rib which is most likely old. Lungs are clear with no acute parenchymal change. Impression: 1. Findings as noted above. 2. Nothing acute is identified on AP chest x-ray. Diagnostic code #2 This report was dictated in MDT
[2020-03-25] MEDS ORDERED: Aspirin 81 MG Tab.Chew PO ONE (17:49)
[2020-03-25 18:43] VITALS: BP 180/60; PULSE 69
== END 2020-03-25 18:43 | disposition left against medical advice (07) ==
LOC: MW.ED 15:34
DX: I16.0 Hypertensive urgency (principal); R79.89 Other specified abnormal findings of blood chemistry; I10 Essential (primary) hypertension; Z53.20 Procedure and treatment not carried out because of patient's decision for unspecified reasons; Z79.82 Long term (current) use of aspirin; Z79.02 Long term (current) use of antithrombotics/antiplatelets; Z79.899 Other long term (current) drug therapy
CPT/HCPCS: 36415; 70450; 71045; 80053; 81003; 83690; 84484; 85025; 93005; 96374; 99284; A9270; J3490; 99283

== ENCOUNTER 2020-03-26 15:16 | Emergency (ER) | payer MEDICARE, OTHER ==
[2020-03-26] MEDS ORDERED: Labetalol 100 MG/20 ML MDV IVPUSH ONE (15:39)
--- NOTE | 2020-03-26 15:56 | EDM.PDOC ---
ED HPI GENERAL MEDICAL PROBLEM - General Chief Complaint: Chest Pain Stated Complaint: CHEST TIGHTNESS Time Seen by Provider: 03/26/20 15:18 Source of Information: Reports: Patient History Limitations: Reports: No Limitations - History of Present Illness INITIAL COMMENTS - FREE TEXT/NARRATIVE: 89F PMHx HTN, CVA presents for dizziness, chest pain, and generalized weakness. Patient was seen yesterday for similar and had negative head CT, normal CXR, and labs remarkable for elevated troponin. She was offered admission for workup, but she did not want to stay. Since going home, she states that she woke up with worsening symptoms despite taking the rx'ed lisinopril. She now states she wishes she would have stayed and is amenable to staying for further workup. - Related Data Allergies Allergy/AdvReac Type Severity Reaction Status Date / Time Tetanus Vaccines and Toxoid Allergy Other Verified 03/25/20 15:53 [Tetanus Vaccines & Toxoid] Home Meds: Home Meds Aspirin [Adult Low Dose Aspirin EC] 81 mg PO DAILY #30 tablet. 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: Musculoskeletal History: Reports: Back Pain, Chronic Neurological History: Reports: None Psychiatric History: Reports: Anxiety Endocrine/Metabolic History: Reports: None Hematologic History: Reports: None Immunologic History: Reports: None Oncologic (Cancer) History: Reports: None Dermatologic History: Reports: None - Infectious Disease History Infectious Disease History: Reports: Chicken Pox - Past Surgical History Head Surgeries/Procedures: Reports: None HEENT Surgical History: Reports: None Cardiovascular Surgical History: Reports: None Respiratory Surgical History: Reports: None GI Surgical History: Reports: None Female Surgical History: Reports: None Endocrine Surgical History: Reports: None Neurological Surgical History: Reports: None Musculoskeletal Surgical History: Reports: None Dermatological Surgical History: Reports: None Social & Family History - Family History Family Medical History: Noncontributory - Caffeine Use Caffeine Use: Reports: None - Living Situation & Occupation Living situation: Reports: , Alone Occupation: Retired ED ROS GENERAL - Review of Systems Review Of Systems: Comprehensive ROS is negative, except as noted in HPI. ED EXAM, GENERAL - Physical Exam Exam: See Below Exam Limited By: No Limitations General Appearance: Alert, WD/WN, No Apparent Distress Head: Atraumatic, Normocephalic Respiratory/Chest: No Respiratory Distress, Lungs Clear, Normal Breath Sounds, No Accessory Muscle Use Cardiovascular: Normal Peripheral Pulses, Regular Rate, Rhythm Extremities: Normal Inspection Neurological: Alert, Oriented, CN II-XII Intact, Normal Cognition, No Motor/Sensory Deficits Psychiatric: Normal Affect, Normal Mood Skin Exam: Warm, Dry EKG INTERPRETATION EKG Date: 03/26/20 Time: 15:59 Rhythm: NSR Rate (Beats/Min): 92 [place]: Normal P-Wave: Present QRS: Normal ST-T: Normal QT: Normal CA/PQ Interval: 92 EKG Interpretation Comments: LBBB pattern, no significant change from yesterday Course - Vital Signs Last Recorded V/S: Last Vital Signs Temp Pulse 80 03/26/20 16:14 Resp BP 140/81 03/26/20 16:14 Pulse Ox 95 03/26/20 16:14 - Orders/Labs/Meds Orders: Active Orders 24 hr Category Date Time Status EKG Documentation Completion [RC] STAT Care 03/26/20 15:31 Active Sodium Chloride 0.9% [Normal Saline] 500 ml Med 03/26/20 16:48 Active IV .BOLUS Medication Orders Sodium Chloride (Normal Saline) 500 mls @ 999 mls/hr IV .BOLUS ONE Stop: 03/26/20 17:18 Labs: Laboratory Tests 03/26/20 03/26/20 03/26/20 Range/Units 15:28 15:28 15:28 WBC 6.78 (4.0-11.0) K/uL RBC 5.22 (4.30-5.90) M/uL Hgb 14.0 (12.0-16.0) g/dL Hct 43.8 (36.0-46.0) % MCV 83.9 (80.0-98.0) fL MCH 26.8 L (27.0-32.0) pg MCHC 32.0 (31.0-37.0) g/dL RDW Std Deviation 46.7 (28.0-62.0) fl RDW Coeff of Tyron 15 (11.0-15.0) % Plt Count 166 (150-400) K/uL MPV 10.30 (7.40-12.00) fL Neut % (Auto) 60.5 (48.0-80.0) % Lymph % (Auto) 26.5 (16.0-40.0) % [place] % (Auto) 10.8 (0.0-15.0) % Eos % (Auto) 1.9 (0.0-7.0) % Baso % (Auto) 0.3 (0.0-1.5) % Neut # (Auto) 4.1 (1.4-5.7) K/uL Lymph # (Auto) 1.8 (0.6-2.4) K/uL [place] # (Auto) 0.7 (0.0-0.8) K/uL Eos # (Auto) 0.1 (0.0-0.7) K/uL Baso # (Auto) 0.0 (0.0-0.1) K/uL Nucleated RBC % 0.0 /100WBC Nucleated RBCs # 0 K/uL Sodium 139 (136-145) mmol/L Potassium 3.6 (3.5-5.1) mmol/L Chloride 103 (98-107) mmol/L Carbon Dioxide 28.3 (21.0-32.0) mmol/L BUN 21 H (7.0-18.0) mg/dL Creatinine 1.3 H (0.6-1.0) mg/dL Est Cr Clr Drug Dosing TNP Estimated GFR (MDRD) 38.7 ml/min Glucose 110 H (74-106) mg/dL Calcium 8.4 L (8.5-10.1) mg/dL Total Bilirubin 0.4 (0.2-1.0) mg/dL AST 25 (15-37) IU/L ALT 31 (14-63) IU/L Alkaline Phosphatase 58 (46-116) U/L Troponin I < 0.050 (0.000-0.056) ng/mL B-Natriuretic Peptide 84 (<100) PG/ML Total Protein 7.1 (6.4-8.2) g/dL Albumin 3.6 (3.4-5.0) g/dL Globulin 3.5 (2.6-4.0) g/dL Albumin/Globulin Ratio 1.0 (0.9-1.6) Meds: Medications Generic Name Dose Route Start Last Admin Trade Name Freq PRN Reason Stop Dose Admin Sodium Chloride 500 mls @ 999 mls/hr 03/26/20 16:48 Normal Saline IV 03/26/20 17:18 .BOLUS ONE Discontinued Medications Generic Name Dose Route Start Last Admin Trade Name Freq PRN Reason Stop Dose Admin Aspirin 162 mg 03/26/20 16:00 03/26/20 16:12 Aspirin PO 03/26/20 16:01 162 mg ONETIME ONE Administration Labetalol HCl 20 mg 03/26/20 15:39 03/26/20 16:38 Normodyne IVPUSH 03/26/20 15:40 Not Given ONETIME ONE Protocol - Re-Assessments/Exams Free Text/Narrative Re-Assessment/Exam: 03/26/20 16:00 Will get labs, will give asa 162mg as patient already had 81mg earlier. 03/26/20 17:11 Patient's labs are unremarkable. Troponin is negative. BP has improved to 140/90 without any ED treatment after getting lisinopril taken around 1PM time to work. Patient states her symptoms are greatly improved. Patient agrees to take her medications and to take her BP frequently. She is to f/u with her PMD. Attempted to call his office, but unable to get through. I spoke with admissions office who ensures they will call tomorrow and make certain patient is able to get f/u appointment. Mrs. Mercado also understands return precautions. Departure - Departure Time of Disposition: 16:54 Disposition: Home, Self-Care 01 Condition: Good Clinical Impression: Hypertension, uncontrolled Instructions: Hypertension, Adult, [id number] Referrals: Ravi Arenas MD [Primary Care Provider] - Forms: ED Department Discharge Additional Instructions: The following information is given to patients seen in the emergency department who are being discharged to home. This information is to outline your options f or follow-up care. We provide all patients seen in our emergency department with a follow-up referral. The need for follow-up, as well as the timing and circumstances, are variable depending upon the specifics of your emergency department visit. If you don't have a primary care physician on staff, we will provide you with a referral. We always advise you to contact your personal physician following an emergency department visit to inform them of the circumstance of the visit and for follow-up with them and/or the need for any referrals to a consulting specialist. The emergency department will also refer you to a specialist when appropriate. This referral assures that you have the opportunity for follow-up care with a specialist. All of these measure are taken in an effort to provide you with optimal care, which includes your follow-up. Under all circumstances we always encourage you to contact your private physician who remains a resource for coordinating your care. When calling for follow-up care, please make the office aware that this follow-up is from your recent emergency room visit. If for any reason you are refused follow-up, please contact the [facility] Emergency Department at and asked to speak to the emergency department charge nurse. Sepsis Event Note (ED) - Focused Exam Vital Signs: Vital Signs Pulse BP Pulse Ox 03/26/20 16:14 80 140/81 95 - My Orders Last 24 Hours: My Active Orders 03/26/20 15:31 EKG Documentation Completion [RC] STAT 03/26/20 16:48 Sodium Chloride 0.9% [Normal Saline] 500 ml IV .BOLUS - Assessment/Plan Last 24 Hours: My Active Orders 03/26/20 15:31 EKG Documentation Completion [RC] STAT 03/26/20 16:48 Sodium Chloride 0.9% [Normal Saline] 500 ml IV .BOLUS
[2020-03-26] MEDS ORDERED: Aspirin 81 MG Tab.Chew PO ONE (16:00)
[2020-03-26 16:07] LABS: BLOOD UREA NITROGEN,BUN 21 mg/dL (7.0-18.0); CARBON DIOXIDE,CO2 28.3 mmol/L (21.0-32.0); CHLORIDE,CL 103 mmol/L (98-107); GLUCOSE RANDOM 110 mg/dL (74-106); POTASSIUM,K 3.6 mmol/L (3.5-5.1); SODIUM,NA 139 mmol/L (136-145)
[2020-03-26] MEDS ORDERED: Sodium Chloride 0.9% 500 ML IV ONE (16:48)
[2020-03-26 17:23] VITALS: BP 161/51; PULSE 76
== END 2020-03-26 17:35 | disposition home or self-care (01) ==
LOC: MW.ED 15:16
DX: I10 Essential (primary) hypertension (principal); Z79.02 Long term (current) use of antithrombotics/antiplatelets; Z79.899 Other long term (current) drug therapy; Z79.82 Long term (current) use of aspirin; Z88.7 Allergy status to serum and vaccine; Z86.73 Personal history of transient ischemic attack (TIA), and cerebral infarction without residual deficits
CPT/HCPCS: 36415; 80053; 83880; 84484; 85025; 93005; 99285; A9270; J7030; 93010; 99283; J3490

== ENCOUNTER 2020-03-30 17:09 | Observation (INO) | payer MEDICARE, OTHER ==
[2020-03-30] MEDS ORDERED: Meclizine 25 MG Tab PO ONE (17:37)
[2020-03-30] MEDS ORDERED: Sodium Chloride 0.9% 10 ML Syringe FLUSH PRN (17:38)
[2020-03-30] MEDS ORDERED: Sodium Chloride 0.9% 2.5 ML Syringe FLUSH PRN ×2 (17:38)
[2020-03-30] MEDS ORDERED: Aspirin 81 MG Tab.Chew PO ONE (17:38)
[2020-03-30 18:22] LABS: BLOOD UREA NITROGEN,BUN 21 mg/dL (7.0-18.0); CARBON DIOXIDE,CO2 25.7 mmol/L (21.0-32.0); CHLORIDE,CL 103 mmol/L (98-107); GLUCOSE RANDOM 118 mg/dL (74-106); SODIUM,NA 138 mmol/L (136-145)
--- NOTE | 2020-03-30 19:12 | CR ---
INDICATION: Chest pain and dizziness TECHNIQUE: Chest 1 view. COMPARISON: 03/25/2020 FINDINGS: Cardiovascular and mediastinum: Heart size and vasculature are normal in caliber and appearance. Mediastinum is within normal limits. Lungs and pleural space: Left lower lobe atelectasis. No sign of infiltrate or mass. No sign of pleural effusion. No pneumothorax. Bones and soft tissues: No significant findings. IMPRESSION: Unremarkable chest. Dictated by Jama Bell MD @ 03/30/2020 7:10:44 PM Dictated by: Jama Bell MD @ 03/30/2020 19:10:52 (Electronically Signed)
--- NOTE | 2020-03-30 19:13 | EDM.PDOC ---
ED HPI GENERAL MEDICAL PROBLEM - General Chief Complaint: Chest Pain Stated Complaint: BLOOD PRESSURE Time Seen by Provider: 03/30/20 17:32 - History of Present Illness INITIAL COMMENTS - FREE TEXT/NARRATIVE: History of present illness: Patient presents with chest pain which she describes as pressure was nonradiating no shortness of breath no leg pain or leg swelling no cough congestion or runny nose she also been having some difficulty for 2 days with vertigo she describes it as inducible when she gets up to move or sometimes when she supposed to sit down it goes away when she still but she almost falls when she stands up and experiences the vertigo. This been no focal weakness or headache no other symptoms. She denies any dysuria or cough she has had the chest pain for several days and has been seen in the ED and discharged with this in the past. Review of systems: As per history of present illness and below otherwise all systems reviewed and negative. Past medical history: As per history of present illness and as reviewed below otherwise noncontributory. Surgical history: As per history of present illness and as reviewed below otherwise noncontributory. Social history: No reported history of drug or alcohol abuse. Family history: As per history of present illness and as reviewed below otherwise noncontributory. Physical exam: HEENT: Atraumatic, normocephalic, pupils reactive, negative for conjunctival pallor or scleral icterus, mucous membranes moist, throat clear, neck supple, nontender, trachea midline. Lungs: Clear to auscultation, breath sounds equal bilaterally, chest nontender. Heart: S1S2, regular, negative for clicks, rubs, or JVD. Abdomen: Soft, nondistended, nontender. Negative for masses or hepatosplenomegaly. Negative for costovertebral tenderness. Pelvis: Stable nontender. Genitourinary: Deferred. Rectal: Deferred. Extremities: Atraumatic, negative for cords or calf pain. Neurovascular unremarkable. Neuro: Awake, alert, oriented. Cranial nerves II through XII unremarkable. Cerebellum unremarkable. Motor and sensory unremarkable throughout. Exam nonfocal. No pronator drift Diagnostics: [] Therapeutics: [] Impression: Vertigo, chest pain [] Plan: We will do cardiac work-up give her some meclizine for her symptoms aspirin for the chest pain and she will be admitted to the hospital. [] Definitive disposition and diagnosis as appropriate pending reevaluation and review of above. chest Pain Score (Numeric/FACES): 2 - Related Data Allergies Allergy/AdvReac Type Severity Reaction Status Date / Time Tetanus Vaccines and Toxoid Allergy Other Verified 03/30/20 17:28 [Tetanus Vaccines & Toxoid] Home Meds: Home Meds Aspirin [Adult Low Dose Aspirin EC] 81 mg PO DAILY #30 tablet. 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: Musculoskeletal History: Reports: Back Pain, Chronic Neurological History: Reports: None Psychiatric History: Reports: Anxiety Endocrine/Metabolic History: Reports: None Hematologic History: Reports: None Immunologic History: Reports: None Oncologic (Cancer) History: Reports: None Dermatologic History: Reports: None - Infectious Disease History Infectious Disease History: Reports: Chicken Pox - Past Surgical History Head Surgeries/Procedures: Reports: None HEENT Surgical History: Reports: None Cardiovascular Surgical History: Reports: None Respiratory Surgical History: Reports: None GI Surgical History: Reports: None Female Surgical History: Reports: None Endocrine Surgical History: Reports: None Neurological Surgical History: Reports: None Musculoskeletal Surgical History: Reports: None Dermatological Surgical History: Reports: None Social & Family History - Family History Family Medical History: Noncontributory - Caffeine Use Caffeine Use: Reports: None - Living Situation & Occupation Living situation: Reports: , Alone Occupation: Retired ED ROS GENERAL - Review of Systems Review Of Systems: See Below ED EXAM, GENERAL - Physical Exam Exam: See Below EKG INTERPRETATION EKG Interpretation Comments: EKG is normal sinus rhythm with left bundle branch block no ischemic changes read interpreted by me Course - Vital Signs Text/Narrative:: Patient still having vertigo after the meclizine I discussed case with Dr. South at 7:10 PM he will admit the patient to the hospital. Last Recorded V/S: Last Vital Signs Temp 36.3 C 03/30/20 17:21 Pulse 93 03/30/20 17:21 Resp 20 03/30/20 17:21 BP 193/65 H 03/30/20 17:21 Pulse Ox 94 L 03/30/20 17:21 - Orders/Labs/Meds Orders: Active Orders 24 hr Category Date Time Status Patient Status [ADT] Routine ADT 03/30/20 19:09 Ordered EKG Documentation Completion [RC] STAT Care 03/30/20 17:38 Active Chest 1V Frontal [CR] Stat Exams 03/30/20 17:39 Taken Sodium Chloride 0.9% [Saline Flush] Med 03/30/20 17:38 Active 10 ml FLUSH ASDIRECTED PRN Sodium Chloride 0.9% [Saline Flush] Med 03/30/20 17:38 Active 2.5 ml FLUSH ASDIRECTED PRN Sodium Chloride 0.9% [Saline Flush] Med 03/30/20 17:38 Active 2.5 ml FLUSH ASDIRECTED PRN Saline Lock Insert [OM.PC] Stat Oth 03/30/20 17:38 Ordered Medication Orders Sodium Chloride (Saline Flush) 10 ml FLUSH ASDIRECTED PRN PRN Reason: Keep Vein Open Last Admin: 03/30/20 17:44 Dose: 10 ml Documented by: ROBERT Sodium Chloride (Saline Flush) 2.5 ml FLUSH ASDIRECTED PRN PRN Reason: Keep Vein Open Last Admin: 03/30/20 17:44 Dose: 2.5 ml Documented by: ROBERT Sodium Chloride (Saline Flush) 2.5 ml FLUSH ASDIRECTED PRN PRN Reason: Keep Vein Open Last Admin: 03/30/20 17:45 Dose: 2.5 ml Documented by: ROBERT Labs: Laboratory Tests 03/30/20 03/30/20 03/30/20 Range/Units 17:40 17:45 17:45 WBC 8.44 (4.0-11.0) K/uL RBC 5.15 (4.30-5.90) M/uL Hgb 13.9 (12.0-16.0) g/dL Hct 43.1 (36.0-46.0) % MCV 83.7 (80.0-98.0) fL MCH 27.0 (27.0-32.0) pg MCHC 32.3 (31.0-37.0) g/dL RDW Std Deviation 46.1 (28.0-62.0) fl RDW Coeff of Tyron 15 (11.0-15.0) % Plt Count 165 (150-400) K/uL MPV 10.90 (7.40-12.00) fL Neut % (Auto) 62.5 (48.0-80.0) % Lymph % (Auto) 23.8 (16.0-40.0) % [place] % (Auto) 11.1 (0.0-15.0) % Eos % (Auto) 2.4 (0.0-7.0) % Baso % (Auto) 0.2 (0.0-1.5) % Neut # (Auto) 5.3 (1.4-5.7) K/uL Lymph # (Auto) 2.0 (0.6-2.4) K/uL [place] # (Auto) 0.9 H (0.0-0.8) K/uL Eos # (Auto) 0.2 (0.0-0.7) K/uL Baso # (Auto) 0.0 (0.0-0.1) K/uL Nucleated RBC % 0.0 /100WBC Nucleated RBCs # 0 K/uL Sodium 138 (136-145) mmol/L Potassium 4.0 (3.5-5.1) mmol/L Chloride 103 (98-107) mmol/L Carbon Dioxide 25.7 (21.0-32.0) mmol/L BUN 21 H (7.0-18.0) mg/dL Creatinine 0.9 (0.6-1.0) mg/dL Est Cr Clr Drug Dosing 31.63 mL/min Estimated GFR (MDRD) 59.2 ml/min Glucose 118 H (74-106) mg/dL Calcium 9.2 (8.5-10.1) mg/dL Total Bilirubin 0.3 (0.2-1.0) mg/dL AST 18 (15-37) IU/L ALT 29 (14-63) IU/L Alkaline Phosphatase 57 (46-116) U/L Troponin I < 0.050 (0.000-0.056) ng/mL Total Protein 7.2 (6.4-8.2) g/dL Albumin 3.5 (3.4-5.0) g/dL Globulin 3.7 (2.6-4.0) g/dL Albumin/Globulin Ratio 0.9 (0.9-1.6) Urine Color YELLOW Urine Appearance CLEAR Urine pH 6.0 (5.0-8.0) Ur Specific [place] 1.015 (1.001-1.035) Urine Protein NEGATIVE (NEGATIVE) mg/dL Urine Glucose (UA) NEGATIVE (NEGATIVE) mg/dL Urine Ketones NEGATIVE (NEGATIVE) mg/dL Urine Occult Blood NEGATIVE (NEGATIVE) Urine Nitrite NEGATIVE (NEGATIVE) Urine Bilirubin NEGATIVE (NEGATIVE) Urine Urobilinogen 0.2 (<2.0) EU/dL Ur Leukocyte Esterase NEGATIVE (NEGATIVE) COVID-19 ([place]) (NEGATIVE) 03/30/20 Range/Units 17:55 WBC (4.0-11.0) K/uL RBC (4.30-5.90) M/uL Hgb (12.0-16.0) g/dL Hct (36.0-46.0) % MCV (80.0-98.0) fL MCH (27.0-32.0) pg MCHC (31.0-37.0) g/dL RDW Std Deviation (28.0-62.0) fl RDW Coeff of Tyron (11.0-15.0) % Plt Count (150-400) K/uL MPV (7.40-12.00) fL Neut % (Auto) (48.0-80.0) % Lymph % (Auto) (16.0-40.0) % [place] % (Auto) (0.0-15.0) % Eos % (Auto) (0.0-7.0) % Baso % (Auto) (0.0-1.5) % Neut # (Auto) (1.4-5.7) K/uL Lymph # (Auto) (0.6-2.4) K/uL [place] # (Auto) (0.0-0.8) K/uL Eos # (Auto) (0.0-0.7) K/uL Baso # (Auto) (0.0-0.1) K/uL Nucleated RBC % /100WBC Nucleated RBCs # K/uL Sodium (136-145) mmol/L Potassium (3.5-5.1) mmol/L Chloride (98-107) mmol/L Carbon Dioxide (21.0-32.0) mmol/L BUN (7.0-18.0) mg/dL Creatinine (0.6-1.0) mg/dL Est Cr Clr Drug Dosing mL/min Estimated GFR (MDRD) ml/min Glucose (74-106) mg/dL Calcium (8.5-10.1) mg/dL Total Bilirubin (0.2-1.0) mg/dL AST (15-37) IU/L ALT (14-63) IU/L Alkaline Phosphatase (46-116) U/L Troponin I (0.000-0.056) ng/mL Total Protein (6.4-8.2) g/dL Albumin (3.4-5.0) g/dL Globulin (2.6-4.0) g/dL Albumin/Globulin Ratio (0.9-1.6) Urine Color Urine Appearance Urine pH (5.0-8.0) Ur Specific [place] (1.001-1.035) Urine Protein (NEGATIVE) mg/dL Urine Glucose (UA) (NEGATIVE) mg/dL Urine Ketones (NEGATIVE) mg/dL Urine Occult Blood (NEGATIVE) Urine Nitrite (NEGATIVE) Urine Bilirubin (NEGATIVE) Urine Urobilinogen (<2.0) EU/dL Ur Leukocyte Esterase (NEGATIVE) COVID-19 ([place]) NEGATIVE (NEGATIVE) Meds: Medications Generic Name Dose Route Start Last Admin Trade Name Freq PRN Reason Stop Dose Admin Sodium Chloride 10 ml 03/30/20 17:38 03/30/20 17:44 Saline Flush FLUSH 10 ml ASDIRECTED PRN Administration Keep Vein Open Sodium Chloride 2.5 ml 03/30/20 17:38 03/30/20 17:44 Saline Flush FLUSH 2.5 ml ASDIRECTED PRN Administration Keep Vein Open Sodium Chloride 2.5 ml 03/30/20 17:38 03/30/20 17:45 Saline Flush FLUSH 2.5 ml ASDIRECTED PRN Administration Keep Vein Open Discontinued Medications Generic Name Dose Route Start Last Admin Trade Name Freq PRN Reason Stop Dose Admin Aspirin 324 mg 03/30/20 17:38 03/30/20 17:41 Aspirin PO 03/30/20 17:39 324 mg ONETIME ONE Administration Meclizine HCl 25 mg 03/30/20 17:37 03/30/20 17:41 Antivert PO 03/30/20 17:38 25 mg ONETIME ONE Administration Departure - Departure Time of Disposition: 19:13 Disposition: Home, Self-Care 01 Condition: Good Clinical Impression: Chest pain, Vertigo - Discharge Information *PRESCRIPTION DRUG MONITORING PROGRAM REVIEWED*: Not Applicable *COPY OF PRESCRIPTION DRUG MONITORING REPORT IN PATIENT PHOEBE: Not Applicable Referrals: Ravi Arenas MD [Primary Care Provider] - Sepsis Event Note (ED) - Evaluation Sepsis Screening Result: No Definite Risk - Focused Exam Vital Signs: Vital Signs Temp Pulse Resp BP Pulse Ox 03/30/20 17:21 36.3 C 93 20 193/65 H 94 L - My Orders Last 24 Hours: My Active Orders 03/30/20 17:38 EKG Documentation Completion [RC] STAT Sodium Chloride 0.9% [Saline Flush] 10 ml FLUSH ASDIRECTED PRN Sodium Chloride 0.9% [Saline Flush] 2.5 ml FLUSH ASDIRECTED PRN Sodium Chloride 0.9% [Saline Flush] 2.5 ml FLUSH ASDIRECTED PRN Saline Lock Insert [OM.PC] Stat 03/30/20 17:39 Chest 1V Frontal [CR] Stat 03/30/20 19:09 Patient Status [ADT] Routine - Assessment/Plan Last 24 Hours: My Active Orders 03/30/20 17:38 EKG Documentation Completion [RC] STAT Sodium Chloride 0.9% [Saline Flush] 10 ml FLUSH ASDIRECTED PRN Sodium Chloride 0.9% [Saline Flush] 2.5 ml FLUSH ASDIRECTED PRN Sodium Chloride 0.9% [Saline Flush] 2.5 ml FLUSH ASDIRECTED PRN Saline Lock Insert [OM.PC] Stat 03/30/20 17:39 Chest 1V Frontal [CR] Stat 03/30/20 19:09 Patient Status [ADT] Routine
--- NOTE | 2020-03-30 22:02 | PCM.HP.2 ---
H&P History of Present Illness - General Date of Service: 03/30/20 Admit Problem/Dx: Admission Diagnosis/Problem Admission Diagnosis/Problem Chest pain - History of Present Illness Initial Comments - Free Text/Narative: 89 yo female with pmh of CVA, HTN who presents with dizziness. Patient reports episodes of dizziness that occurs with movement. She describes the dizziness as if the room was spinning. Patient denies any fevers, chills, shortness of breath, or chest pain. Once arriving in the ED the dizziness had resolved chest Pain Score (Numeric/FACES): 2 - Related Data Allergies/Adverse Reactions: Allergies Allergy/AdvReac Type Severity Reaction Status Date / Time Tetanus Vaccines and Toxoid Allergy Other Verified 03/30/20 20:44 [Tetanus Vaccines & Toxoid] Home Medications: Home Meds Aspirin [Adult Low Dose Aspirin EC] 81 mg PO DAILY #30 tablet. 12/31/18 [Rx] Clopidogrel [Plavix] 75 mg PO DAILY 21 Days #21 tablet 12/31/18 [Rx] atorvaSTATin [Lipitor] 10 mg PO BEDTIME 30 Days #30 tablet 12/31/18 [Rx] hydroCHLOROthiazide [Hydrochlorothiazide] 12.5 mg PO DAILY 30 Days #30 cap [Rx] lisinopriL [Lisinopril] 10 mg PO DAILY 30 Days #30 tablet 03/25/20 [Rx] Meclizine [Antivert] 25 mg PO DAILY PRN #20 tab 03/31/20 [Rx] Past Medical History HEENT History: Reports: None Cardiovascular History: Reports: Hypertension Respiratory History: Reports: None Gastrointestinal History: Reports: None Genitourinary History: Reports: Urinary Incontinence, UTI, Recurrent 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: Musculoskeletal History: Reports: Back Pain, Chronic Neurological History: Reports: None Psychiatric History: Reports: Anxiety Endocrine/Metabolic History: Reports: None Hematologic History: Reports: None Immunologic History: Reports: None Oncologic (Cancer) History: Reports: None Dermatologic History: Reports: None - Infectious Disease History Infectious Disease History: Reports: Chicken Pox - Past Surgical History Head Surgeries/Procedures: Reports: None HEENT Surgical History: Reports: None Cardiovascular Surgical History: Reports: None Respiratory Surgical History: Reports: None GI Surgical History: Reports: None Female Surgical History: Reports: Hysterectomy Endocrine Surgical History: Reports: None Neurological Surgical History: Reports: None Musculoskeletal Surgical History: Reports: None Dermatological Surgical History: Reports: None Social & Family History - Family History Family Medical History: Noncontributory - Tobacco Use Smoking Status *Q: Never Smoker Second Hand Smoke Exposure: No - Caffeine Use Caffeine Use: Reports: Coffee - Recreational Drug Use Recreational Drug Use: No - Living Situation & Occupation Living situation: Reports: , Alone Occupation: Retired H&P Review of Systems - Review of Systems: Review Of Systems: See Below Exam - Exam Exam: See Below - Vital Signs Vital Signs: Last Vital Signs Temp 36.5 C 03/30/20 20:25 Pulse 83 03/30/20 20:25 Resp 16 03/30/20 20:25 BP 107/83 03/30/20 20:25 Pulse Ox 95 03/30/20 20:25 Weight: 70.624 kg - Exam General: Alert, Oriented HEENT: Mucosa Moist & [place] Lungs: Clear to Auscultation, Normal Respiratory Effort Cardiovascular: Regular Rate, Regular Rhythm GI/Abdominal Exam: Normal Bowel Sounds, Soft, Non-Tender Extremities: Non-Tender, No Pedal Edema Skin: Warm, Dry, Intact Neurological: Cranial Nerves Intact, Reflexes Equal Bilateral, Normal Gait, Normal Speech, Normal Tone, Sensation Intact. No: Focal Deficit - Patient Data Lab Results Last 24 hrs: Laboratory Results - last 24 hr 03/30/20 03/30/20 03/30/20 Range/Units 17:40 17:45 17:45 WBC 8.44 (4.0-11.0) K/uL RBC 5.15 (4.30-5.90) M/uL Hgb 13.9 (12.0-16.0) g/dL Hct 43.1 (36.0-46.0) % MCV 83.7 (80.0-98.0) fL MCH 27.0 (27.0-32.0) pg MCHC 32.3 (31.0-37.0) g/dL RDW Std Deviation 46.1 (28.0-62.0) fl RDW Coeff of Tyron 15 (11.0-15.0) % Plt Count 165 (150-400) K/uL MPV 10.90 (7.40-12.00) fL Neut % (Auto) 62.5 (48.0-80.0) % Lymph % (Auto) 23.8 (16.0-40.0) % [place] % (Auto) 11.1 (0.0-15.0) % Eos % (Auto) 2.4 (0.0-7.0) % Baso % (Auto) 0.2 (0.0-1.5) % Neut # (Auto) 5.3 (1.4-5.7) K/uL Lymph # (Auto) 2.0 (0.6-2.4) K/uL [place] # (Auto) 0.9 H (0.0-0.8) K/uL Eos # (Auto) 0.2 (0.0-0.7) K/uL Baso # (Auto) 0.0 (0.0-0.1) K/uL Nucleated RBC % 0.0 /100WBC Nucleated RBCs # 0 K/uL Sodium 138 (136-145) mmol/L Potassium 4.0 (3.5-5.1) mmol/L Chloride 103 (98-107) mmol/L Carbon Dioxide 25.7 (21.0-32.0) mmol/L BUN 21 H (7.0-18.0) mg/dL Creatinine 0.9 (0.6-1.0) mg/dL Est Cr Clr Drug Dosing 31.63 mL/min Estimated GFR (MDRD) 59.2 ml/min Glucose 118 H (74-106) mg/dL Calcium 9.2 (8.5-10.1) mg/dL Total Bilirubin 0.3 (0.2-1.0) mg/dL AST 18 (15-37) IU/L ALT 29 (14-63) IU/L Alkaline Phosphatase 57 (46-116) U/L Troponin I < 0.050 (0.000-0.056) ng/mL Total Protein 7.2 (6.4-8.2) g/dL Albumin 3.5 (3.4-5.0) g/dL Globulin 3.7 (2.6-4.0) g/dL Albumin/Globulin Ratio 0.9 (0.9-1.6) Urine Color YELLOW Urine Appearance CLEAR Urine pH 6.0 (5.0-8.0) Ur Specific [place] 1.015 (1.001-1.035) Urine Protein NEGATIVE (NEGATIVE) mg/dL Urine Glucose (UA) NEGATIVE (NEGATIVE) mg/dL Urine Ketones NEGATIVE (NEGATIVE) mg/dL Urine Occult Blood NEGATIVE (NEGATIVE) Urine Nitrite NEGATIVE (NEGATIVE) Urine Bilirubin NEGATIVE (NEGATIVE) Urine Urobilinogen 0.2 (<2.0) EU/dL Ur Leukocyte Esterase NEGATIVE (NEGATIVE) COVID-19 ([facility]) (NEGATIVE) 03/30/20 Range/Units 17:55 WBC (4.0-11.0) K/uL RBC (4.30-5.90) M/uL Hgb (12.0-16.0) g/dL Hct (36.0-46.0) % MCV (80.0-98.0) fL MCH (27.0-32.0) pg MCHC (31.0-37.0) g/dL RDW Std Deviation (28.0-62.0) fl RDW Coeff of Tyron (11.0-15.0) % Plt Count (150-400) K/uL MPV (7.40-12.00) fL Neut % (Auto) (48.0-80.0) % Lymph % (Auto) (16.0-40.0) % [place] % (Auto) (0.0-15.0) % Eos % (Auto) (0.0-7.0) % Baso % (Auto) (0.0-1.5) % Neut # (Auto) (1.4-5.7) K/uL Lymph # (Auto) (0.6-2.4) K/uL [place] # (Auto) (0.0-0.8) K/uL Eos # (Auto) (0.0-0.7) K/uL Baso # (Auto) (0.0-0.1) K/uL Nucleated RBC % /100WBC Nucleated RBCs # K/uL Sodium (136-145) mmol/L Potassium (3.5-5.1) mmol/L Chloride (98-107) mmol/L Carbon Dioxide (21.0-32.0) mmol/L BUN (7.0-18.0) mg/dL Creatinine (0.6-1.0) mg/dL Est Cr Clr Drug Dosing mL/min Estimated GFR (MDRD) ml/min Glucose (74-106) mg/dL Calcium (8.5-10.1) mg/dL Total Bilirubin (0.2-1.0) mg/dL AST (15-37) IU/L ALT (14-63) IU/L Alkaline Phosphatase (46-116) U/L Troponin I (0.000-0.056) ng/mL Total Protein (6.4-8.2) g/dL Albumin (3.4-5.0) g/dL Globulin (2.6-4.0) g/dL Albumin/Globulin Ratio (0.9-1.6) Urine Color Urine Appearance Urine pH (5.0-8.0) Ur Specific [place] (1.001-1.035) Urine Protein (NEGATIVE) mg/dL Urine Glucose (UA) (NEGATIVE) mg/dL Urine Ketones (NEGATIVE) mg/dL Urine Occult Blood (NEGATIVE) Urine Nitrite (NEGATIVE) Urine Bilirubin (NEGATIVE) Urine Urobilinogen (<2.0) EU/dL Ur Leukocyte Esterase (NEGATIVE) COVID-19 ([facility]) NEGATIVE (NEGATIVE) Result Diagrams: 03/30/20 17:45 03/30/20 17:45 Sepsis Event Note - Evaluation Sepsis Screening Result: No Definite Risk - Focused Exam Vital Signs: Vital Signs Temp Pulse Resp BP BP Pulse Ox 03/30/20 20:25 36.5 C 83 16 107/83 95 03/30/20 20:00 82 20 157/72 H 94 L 03/30/20 17:21 36.3 C 93 20 193/65 H 94 L Problem List Initiated/Reviewed/Updated: Yes Orders Last 24hrs: Active Orders 24 hr Category Date Time Status Patient Status [ADT] Routine ADT 03/30/20 19:09 Active EKG Documentation Completion [RC] STAT Care 03/30/20 17:38 Active Telemetry Monitoring [Cardiac Monitoring] [RC] Q8H Care 03/30/20 19:57 Active Regular Diet [DIET] Diet 03/31/20 Breakfast Active TROPONIN I [CHEM] Routine Lab 03/30/20 23:45 Ordered TROPONIN I [CHEM] Routine Lab 03/31/20 05:45 Ordered Sodium Chloride 0.9% [Saline Flush] Med 03/30/20 17:38 Active 10 ml FLUSH ASDIRECTED PRN Sodium Chloride 0.9% [Saline Flush] Med 03/30/20 17:38 Active 2.5 ml FLUSH ASDIRECTED PRN Sodium Chloride 0.9% [Saline Flush] Med 03/30/20 17:38 Active 2.5 ml FLUSH ASDIRECTED PRN Saline Lock Insert [OM.PC] Stat Oth 03/30/20 17:38 Ordered Medication Orders Sodium Chloride (Saline Flush) 10 ml FLUSH ASDIRECTED PRN PRN Reason: Keep Vein Open Last Admin: 03/30/20 17:44 Dose: 10 ml Documented by: ROBERT Sodium Chloride (Saline Flush) 2.5 ml FLUSH ASDIRECTED PRN PRN Reason: Keep Vein Open Last Admin: 03/30/20 17:44 Dose: 2.5 ml Documented by: ROBERT Sodium Chloride (Saline Flush) 2.5 ml FLUSH ASDIRECTED PRN PRN Reason: Keep Vein Open Last Admin: 03/30/20 17:45 Dose: 2.5 ml Documented by: ROBERT Assessment/Plan Comment:: 89 yo female admitted for vertigo. I suspect BPPV. PT consulted and recommend home health, no need for assistance device. No reoccurrence of chest pain which patient reported to ED physcian. Her serial troponins were negative. She had no events on telemetry. Patient is eager to discharge home. We will discharge home with home health.
[2020-03-31] MEDS ORDERED: Hydrochlorothiazide 12.5 MG Cap PO SCH (10:30)
[2020-03-31] MEDS ORDERED: Clopidogrel 75 MG Tab PO SCH (10:30)
[2020-03-31] MEDS ORDERED: Lisinopril 10 MG Tab PO SCH (10:30)
[2020-03-31] MEDS ORDERED: Aspirin 81 MG Tab.EC PO SCH (10:30)
[2020-03-31 11:57] VITALS: BP 158/69; PULSE 77
[2020-03-31] MEDS ORDERED: atorvaSTATin 10 MG Tab PO SCH (21:00)
== END 2020-03-31 13:00 | disposition home health service (06) ==
LOC: MW.ED 17:09 → MW.MS 19:21
PROVIDERS: ADMIT Internal Medicine; ATTEND Internal Medicine
DX: R07.89 Other chest pain (principal); R42 Dizziness and giddiness; I10 Essential (primary) hypertension; Z20.828 Contact with and (suspected) exposure to other viral communicable diseases; Z86.73 Personal history of transient ischemic attack (TIA), and cerebral infarction without residual deficits; Z79.899 Other long term (current) drug therapy; Z79.82 Long term (current) use of aspirin; Z88.7 Allergy status to serum and vaccine
CPT/HCPCS: 36415; 71045; 80053; 81003; 84484; 85025; 93005; 97161; 99285; A9270; G0378; U0002; 99283

== ENCOUNTER 2020-04-10 18:43 | Emergency (ER) | payer MEDICARE, OTHER ==
--- NOTE | 2020-04-10 19:01 | EDM.PDOC ---
ED HPI GENERAL MEDICAL PROBLEM - General Stated Complaint: DIZZINESS Time Seen by Provider: 04/10/20 19:15 Source of Information: Reports: Patient History Limitations: Reports: No Limitations - History of Present Illness INITIAL COMMENTS - FREE TEXT/NARRATIVE: Presents reporting that she is here because of a "fluke". Follows by saying "but I am sick". The patient states that she believes that she accidentally pushed her first alert alarm that she wears around her neck. The ambulance crew showed up at her house and insisted that she come to the hospital. She had had some dizziness earlier and taken a meclizine so she eventually agreed to come in for her dizziness. Denies chest pain, shortness of breath, abdominal pain, headache, visual symptoms, focal weakness, fever, cough or upper resp symptoms. She states that it is a spinning dizziness that she has had before and has meclizine at home for it. During the interview, she is laughing and joking and telling stories. She states that she was exposed to COVID about a week ago but she was tested yesterday and was negative. States that she lives alone but is very active cooking, baking, doing yard work, housekeeping and shopping. - Related Data Allergies Allergy/AdvReac Type Severity Reaction Status Date / Time Tetanus Vaccines and Toxoid Allergy Other Verified 04/10/20 18:59 [Tetanus Vaccines & Toxoid] Home Meds: Home Meds Aspirin [Adult Low Dose Aspirin EC] 81 mg PO DAILY #30 tablet. 12/31/18 [Rx] Clopidogrel [Plavix] 75 mg PO DAILY 21 Days #21 tablet 12/31/18 [Rx] atorvaSTATin [Lipitor] 10 mg PO BEDTIME 30 Days #30 tablet 12/31/18 [Rx] hydroCHLOROthiazide [Hydrochlorothiazide] 12.5 mg PO DAILY 30 Days #30 cap 12/31/18 [Rx] lisinopriL [Lisinopril] 10 mg PO DAILY 30 Days #30 tablet 03/25/20 [Rx] Meclizine [Antivert] 25 mg PO DAILY PRN #20 tab 03/31/20 [Rx] Past Medical History HEENT History: Reports: None Cardiovascular History: Reports: Hypertension Respiratory History: Reports: None Gastrointestinal History: Reports: None Genitourinary History: Reports: Urinary Incontinence, UTI, Recurrent 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: Musculoskeletal History: Reports: Back Pain, Chronic Neurological History: Reports: None Psychiatric History: Reports: Anxiety Endocrine/Metabolic History: Reports: None Hematologic History: Reports: None Immunologic History: Reports: None Oncologic (Cancer) History: Reports: None Dermatologic History: Reports: None - Infectious Disease History Infectious Disease History: Reports: Chicken Pox - Past Surgical History Head Surgeries/Procedures: Reports: None HEENT Surgical History: Reports: None Cardiovascular Surgical History: Reports: None Respiratory Surgical History: Reports: None GI Surgical History: Reports: None Female Surgical History: Reports: Hysterectomy Endocrine Surgical History: Reports: None Neurological Surgical History: Reports: None Musculoskeletal Surgical History: Reports: None Dermatological Surgical History: Reports: None Social & Family History - Family History Family Medical History: Noncontributory - Caffeine Use Caffeine Use: Reports: Coffee - Living Situation & Occupation Living situation: Reports: , Alone Occupation: Retired ED ROS GENERAL - Review of Systems Review Of Systems: Comprehensive ROS is negative, except as noted in HPI. ED EXAM, GENERAL - Physical Exam Exam: See Below Exam Limited By: No Limitations General Appearance: Alert, No Apparent Distress Nose: Normal Inspection Throat/Mouth: Normal Inspection Head: Atraumatic, Normocephalic Neck: Normal Inspection Respiratory/Chest: No Respiratory Distress, Lungs Clear, Normal Breath Sounds Cardiovascular: Normal Peripheral Pulses, Regular Rate, Rhythm GI/Abdominal: Soft, Non-Tender, No Distention Neurological: Alert, Oriented, Normal Cognition Psychiatric: Normal Affect, Normal Mood Skin Exam: Warm, Dry, Intact, Normal Color, No Rash Lymphatic: No Adenopathy EKG INTERPRETATION EKG Date: 04/10/20 Rhythm: NSR [place]: Normal P-Wave: Present QRS: LBBB ST-T: Normal QT: Normal Course - Vital Signs Last Recorded V/S: Last Vital Signs Temp 36.2 C 04/10/20 19:00 Pulse 95 04/10/20 19:59 Resp 18 04/10/20 19:59 BP 182/80 H 04/10/20 19:59 Pulse Ox 95 04/10/20 19:59 - Orders/Labs/Meds Orders: Active Orders 24 hr Category Date Time Status EKG 12 Lead [EKG Documentation Completion] [RC] URGENT Care 04/10/20 18:56 Active Labs: Laboratory Tests 04/10/20 Range/Units 19:20 Sodium 135 L (136-145) mmol/L Potassium 4.5 (3.5-5.1) mmol/L Chloride 102 (98-107) mmol/L Carbon Dioxide 25.7 (21.0-32.0) mmol/L BUN 16 (7.0-18.0) mg/dL Creatinine 1.0 (0.6-1.0) mg/dL Est Cr Clr Drug Dosing 28.47 mL/min Estimated GFR (MDRD) 52.4 ml/min Glucose 102 (74-106) mg/dL Calcium 9.0 (8.5-10.1) mg/dL Total Bilirubin 0.4 (0.2-1.0) mg/dL AST 20 (15-37) IU/L ALT 32 (14-63) IU/L Alkaline Phosphatase 61 (46-116) U/L Troponin I < 0.050 (0.000-0.056) ng/mL Total Protein 7.3 (6.4-8.2) g/dL Albumin 3.7 (3.4-5.0) g/dL Globulin 3.6 (2.6-4.0) g/dL Albumin/Globulin Ratio 1.0 (0.9-1.6) - Re-Assessments/Exams Free Text/Narrative Re-Assessment/Exam: 04/10/20 20:02 Patient is happily eating and drinking coffee and is no longer complaining of dizziness. She states that hot coffee is better than any medicine. Departure - Departure Time of Disposition: 20:03 Disposition: Home, Self-Care 01 Condition: Good Clinical Impression: Vertigo - Discharge Information Referrals: Nathan Azevedo [Ordering Only Provider] - Additional Instructions: The following information is given to patients seen in the emergency department who are being discharged to home. This information is to outline your options for follow-up care. We provide all patients seen in our emergency department with a follow-up referral. The need for follow-up, as well as the timing and circumstances, are variable depending upon the specifics of your emergency department visit. If you don't have a primary care physician on staff, we will provide you with a referral. We always advise you to contact your personal physician following an emergency department visit to inform them of the circumstance of the visit and for follow-up with them and/or the need for any referrals to a consulting specialist. The emergency department will also refer you to a specialist when appropriate. This referral assures that you have the opportunity for follow-up care with a specialist. All of these measure are taken in an effort to provide you with optimal care, which includes your follow-up. Under all circumstances we always encourage you to contact your private physician who remains a resource for coordinating your care. When calling for follow-up care, please make the office aware that this follow-up is from your recent emergency room visit. If for any reason you are refused follow-up, please contact the [facility] Emergency Department at and asked to speak to the emergency department charge nurse. 1. Meclizine if you have spinning dizziness. 2. Follow up with your primary provider Sepsis Event Note (ED) - Focused Exam Vital Signs: Vital Signs Temp Pulse Resp BP Pulse Ox 04/10/20 19:59 95 18 182/80 H 95 04/10/20 19:20 76 169/59 H 95 04/10/20 19:00 36.2 C 87 19 169/75 H 95 - My Orders Last 24 Hours: My Active Orders 04/10/20 18:56 EKG 12 Lead [EKG Documentation Completion] [RC] URGENT - Assessment/Plan Last 24 Hours: My Active Orders 04/10/20 18:56 EKG 12 Lead [EKG Documentation Completion] [RC] URGENT
[2020-04-10 19:52] LABS: BLOOD UREA NITROGEN,BUN 16 mg/dL (7.0-18.0); CARBON DIOXIDE,CO2 25.7 mmol/L (21.0-32.0); CHLORIDE,CL 102 mmol/L (98-107); GLUCOSE RANDOM 102 mg/dL (74-106); POTASSIUM,K 4.5 mmol/L (3.5-5.1); SODIUM,NA 135 mmol/L (136-145)
[2020-04-10 20:34] VITALS: BP 163/69; PULSE 78
== END 2020-04-10 20:21 | disposition home or self-care (01) ==
LOC: MW.ED 18:43
DX: R42 Dizziness and giddiness (principal); I10 Essential (primary) hypertension; Z88.7 Allergy status to serum and vaccine; Z79.82 Long term (current) use of aspirin; Z79.899 Other long term (current) drug therapy; Z79.02 Long term (current) use of antithrombotics/antiplatelets
CPT/HCPCS: 36415; 80053; 84484; 93005; 99282; 99284-25

== ENCOUNTER 2020-04-23 17:07 | Emergency (ER) | payer MEDICARE, OTHER ==
[2020-04-23 17:56] VITALS: BP 144/60; PULSE 90
== END 2020-04-23 17:59 | disposition left against medical advice (07) ==
LOC: MW.ED 17:07
DX: Z53.21 Procedure and treatment not carried out due to patient leaving prior to being seen by health care provider (principal)

== ENCOUNTER 2020-06-04 17:32 | Emergency (ER) | payer MEDICARE, OTHER ==
--- NOTE | 2020-06-04 18:10 | EDM.PDOC ---
ED HPI GENERAL MEDICAL PROBLEM - General Chief Complaint: Cardiovascular Problem Stated Complaint: HIGH BLOOD PRESSURE Time Seen by Provider: 06/04/20 17:39 Source of Information: Reports: Patient History Limitations: Reports: No Limitations - History of Present Illness INITIAL COMMENTS - FREE TEXT/NARRATIVE: History of present illness: []-year-old female who presents today for elevated blood pressure. 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 Patient takes at home her blood pressure increase greater than 200 systolic. Patient mention slight headache but denied any chest pain vision change or change in urination. Patient currently has no symptoms right now. Review of systems: As per history of present illness and below otherwise all systems reviewed and negative. Past medical history: As per history of present illness and as reviewed below otherwise noncontributory. Surgical history: As per history of present illness and as reviewed below otherwise noncontributory. Social history: No reported history of drug or alcohol abuse. Family history: As per history of present illness and as reviewed below otherwise noncontributory. 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: Musculoskeletal History: Reports: Back Pain, Chronic Neurological History: Reports: None Psychiatric History: Reports: Anxiety Endocrine/Metabolic History: Reports: None Hematologic History: Reports: None Immunologic History: Reports: None Oncologic (Cancer) History: Reports: None Dermatologic History: Reports: None - Infectious Disease History Infectious Disease History: Reports: Chicken Pox - Past Surgical History Head Surgeries/Procedures: Reports: None HEENT Surgical History: Reports: None Cardiovascular Surgical History: Reports: None Respiratory Surgical History: Reports: None GI Surgical History: Reports: None Female Surgical History: Reports: Hysterectomy Endocrine Surgical History: Reports: None Neurological Surgical History: Reports: None Musculoskeletal Surgical History: Reports: None Dermatological Surgical History: Reports: None Social & Family History - Family History Family Medical History: Noncontributory - Tobacco Use Tobacco Use Status *Q: Never Tobacco User - Caffeine Use Caffeine Use: Reports: Coffee - Recreational Drug Use Recreational Drug Use: No - Living Situation & Occupation Living situation: Reports: , Alone Occupation: Retired ED ROS GENERAL - Review of Systems Review Of Systems: See Below Constitutional: Reports: No Symptoms HEENT: Reports: No Symptoms Respiratory: Reports: No Symptoms Cardiovascular: Reports: No Symptoms Endocrine: Reports: No Symptoms GI/Abdominal: Reports: No Symptoms : Reports: No Symptoms Musculoskeletal: Reports: No Symptoms Skin: Reports: No Symptoms Neurological: Reports: Headache Psychiatric: Reports: No Symptoms ED EXAM, GENERAL - Physical Exam Exam: See Below Exam Limited By: No Limitations General Appearance: Alert Eye Exam: Bilateral Eye: EOMI, PERRL Ears: Normal External Exam Head: Atraumatic Respiratory/Chest: No Respiratory Distress Cardiovascular: Normal Peripheral Pulses, Regular Rate, Rhythm GI/Abdominal: Normal Bowel Sounds, Soft, Non-Tender Back Exam: Normal Inspection Neurological: Alert, Oriented, CN II-XII Intact #1 Interpretation EKG Date: 06/04/20 Time: 17:42 Rhythm: Other (Sinus Tach) Rate (Beats/Min): 112 [place]: Normal QRS: LBBB Comparison: Change From Previous EKG Course - Vital Signs Last Recorded V/S: Last Vital Signs Temp 97.3 F 06/04/20 17:37 Pulse 120 H 06/04/20 17:37 Resp 18 06/04/20 17:37 BP 163/97 H 06/04/20 17:37 Pulse Ox 93 L 06/04/20 17:37 - Orders/Labs/Meds Orders: Active Orders 24 hr Category Date Time Status EKG Documentation Completion [RC] STAT Care 06/04/20 17:52 Active Labs: Laboratory Tests 06/04/20 06/04/20 06/04/20 Range/Units 17:45 17:47 17:47 WBC 7.30 (4.0-11.0) K/uL RBC 5.33 (4.30-5.90) M/uL Hgb 14.8 (12.0-16.0) g/dL Hct 45.3 (36.0-46.0) % MCV 85.0 (80.0-98.0) fL MCH 27.8 (27.0-32.0) pg MCHC 32.7 (31.0-37.0) g/dL RDW Std Deviation 46.2 (28.0-62.0) fl RDW Coeff of Tyron 15 (11.0-15.0) % Plt Count 207 (150-400) K/uL MPV 10.10 (7.40-12.00) fL Neut % (Auto) 57.6 (48.0-80.0) % Lymph % (Auto) 31.4 (16.0-40.0) % [place] % (Auto) 9.2 (0.0-15.0) % Eos % (Auto) 1.4 (0.0-7.0) % Baso % (Auto) 0.4 (0.0-1.5) % Neut # (Auto) 4.2 (1.4-5.7) K/uL Lymph # (Auto) 2.3 (0.6-2.4) K/uL [place] # (Auto) 0.7 (0.0-0.8) K/uL Eos # (Auto) 0.1 (0.0-0.7) K/uL Baso # (Auto) 0.0 (0.0-0.1) K/uL Nucleated RBC % 0.0 /100WBC Nucleated RBCs # 0 K/uL Sodium 138 (136-145) mmol/L Potassium 4.1 (3.5-5.1) mmol/L Chloride 103 (98-107) mmol/L Carbon Dioxide 25.5 (21.0-32.0) mmol/L BUN 24 H (7.0-18.0) mg/dL Creatinine 0.9 (0.6-1.0) mg/dL Est Cr Clr Drug Dosing 31.63 mL/min Estimated GFR (MDRD) 59.2 ml/min Glucose 113 H (74-106) mg/dL Calcium 9.3 (8.5-10.1) mg/dL Urine Color YELLOW Urine Appearance CLEAR Urine pH 7.0 (5.0-8.0) Ur Specific [place] 1.010 (1.001-1.035) Urine Protein NEGATIVE (NEGATIVE) mg/dL Urine Glucose (UA) NEGATIVE (NEGATIVE) mg/dL Urine Ketones NEGATIVE (NEGATIVE) mg/dL Urine Occult Blood NEGATIVE (NEGATIVE) Urine Nitrite POSITIVE H (NEGATIVE) Urine Bilirubin NEGATIVE (NEGATIVE) Urine Urobilinogen 0.2 (<2.0) EU/dL Ur Leukocyte Esterase NEGATIVE (NEGATIVE) Urine RBC 0-1 (0-2/HPF) Urine WBC 0-1 (0-5/HPF) Ur Epithelial Cells OCCASIONAL (NONE-FEW) Urine Bacteria FEW (NEGATIVE) Departure - Departure Time of Disposition: 18:39 Disposition: Home, Self-Care 01 Clinical Impression: Asymptomatic hypertension Referrals: PCP,None [Primary Care Provider] - Forms: ED Department Discharge Sepsis Event Note (ED) - Evaluation Sepsis Screening Result: No Definite Risk - Focused Exam Vital Signs: Vital Signs Temp Pulse Resp BP Pulse Ox 06/04/20 17:37 97.3 F 120 H 18 163/97 H 93 L - My Orders Last 24 Hours: My Active Orders 06/04/20 17:52 EKG Documentation Completion [RC] STAT - Assessment/Plan Admission H&P: Please use this note as an admission H&P Last 24 Hours: My Active Orders 06/04/20 17:52 EKG Documentation Completion [RC] STAT Plan: Patient is a 89-year-old female who presented today for elevated blood pressure at her visiting nurse checked it and she checked it herself at home. Patient has no symptoms at the moment. Will obtain labs and EKG Patient heart rate also improved down to 88. Patient blood pressure still slightly elevated at 180s systolic but not having any symptoms. Patient states she did speak to her manager occupational who states that he will not change her medication and what to see her be more compliant. Patient will be discharged was given strict return precautions.
[2020-06-04 18:19] LABS: CARBON DIOXIDE,CO2 25.5 mmol/L (21.0-32.0); POTASSIUM,K 4.1 mmol/L (3.5-5.1)
[2020-06-04 18:40] VITALS: BP 180/75; PULSE 101
== END 2020-06-04 18:55 | disposition home or self-care (01) ==
LOC: MW.ED 17:32
DX: I10 Essential (primary) hypertension (principal); Z88.7 Allergy status to serum and vaccine; Z90.710 Acquired absence of both cervix and uterus
CPT/HCPCS: 36415; 80048; 81001; 85025; 99283-25

== ENCOUNTER 2020-06-13 11:08 | Emergency (ER) | payer MEDICARE, OTHER ==
[2020-06-13] MEDS ORDERED: Sodium Chloride 0.9% 2.5 ML Syringe FLUSH PRN (11:26)
[2020-06-13] MEDS ORDERED: Sodium Chloride 0.9% 10 ML Syringe FLUSH PRN (11:26)
[2020-06-13 12:09] LABS: BLOOD UREA NITROGEN,BUN 16 mg/dL (7.0-18.0); CARBON DIOXIDE,CO2 25.4 mmol/L (21.0-32.0); CHLORIDE,CL 103 mmol/L (98-107); GLUCOSE RANDOM 123 mg/dL (74-106); POTASSIUM,K 4.3 mmol/L (3.5-5.1); SODIUM,NA 137 mmol/L (136-145)
--- NOTE | 2020-06-13 12:41 | EDM.PDOC ---
ED HPI GENERAL MEDICAL PROBLEM - General Chief Complaint: Chest Pain Stated Complaint: CHEST PAIN,NAUSEA Time Seen by Provider: 06/13/20 11:14 - History of Present Illness INITIAL COMMENTS - FREE TEXT/NARRATIVE: HISTORY AND PHYSICAL: History of present illness: This is an 89-year-old female with a history significant for hypertension who presents ER today secondary to elevated blood pressure. Patient reports that her home health nurse came earlier today and noticed that her blood pressure was markedly elevated and that she had reported that she had some discomfort in her chest yesterday evening. Patient's home health nurse contacted her setter cold rolling machine and recommended that she come to the ER for evaluation. Patient currently denies any chest discomfort or pressure. Patient has any shortness of breath. Patient denies any pain rating to her arms or jaw. Patient reports that she has some mild diaphoresis for short amount time but that resolved. Patient currently reports that she had forgotten to take her blood pressure medications and per the patient's caregiver it appears that she forgets frequently to take her blood pressure medications. Patient is scheduled on June [address] [facility] for a cardiac catheterization secondary to an abnormal stress test. Patient denies any recent fevers, shakes, chills, nausea, vomiting, diarrhea, dysuria, frequency, urgency, cough, URI symptoms. Patient has any tobacco alcohol or drugs. Review of systems: As per history of present illness and below otherwise all systems reviewed and negative. Past medical history: As per history of present illness and as reviewed below otherwise noncontributory. Surgical history: As per history of present illness and as reviewed below otherwise noncontributory. Social history: No reported history of drug or alcohol abuse. Family history: As per history of present illness and as reviewed below otherwise noncontributory. Physical exam: Constitutional: Patient is oriented to person, place, and time. Appears well- developed and well-nourished. No distress. HEENT: Moist mucous membranes Head: Normocephalic and atraumatic Eyes: Right eye exhibits no discharge. Left eye exhibits no discharge. No s cleral icterus Neck: Normal range of motion. No tracheal deviation present. Cardiovascular: Normal rate and regular rhythm. Pulmonary: Effort normal, no respiratory distress. Abdominal: No distention Musculoskeletal: Normal range of motion Neurologic: Alert and oriented to person, place and time. Skin: Bastian, warm and dry. Psychiatric: Normal mood and affect. Behavior is normal. Judgment and thought content normal. Nursing note and vital signs have been reviewed Diagnostics: EKG: Normal sinus rhythm heart rate of [address]-T wave abnormalities Normal axis No evidence of ST elevation [place] As interpreted by ER physician: Supa Chest Xray: Normal cardiac silhouette No infiltrates or effusions identified. No PTX No evidence of acute bony fracture. As interpreted by ER MD: Supa CBC, CMP, troponin within normal limits Therapeutics: Patient was given her blood pressure medications at home prior to arrival. Patient blood pressure appears to be significantly improved. At home patient's caregiver reports that she was 200/90 she is currently running a blood pressure of 158/64. Patient reports she feels much improved while sitting here in the ED and currently is asymptomatic. Assessment and plan: This is an 89-year-old female who presents ER today secondary to elevated blood pressure secondary to noncompliance with her antihypertensive medications. Patient reports she did have some chest discomfort yesterday but today has not had any discomfort in her chest. Patient's blood pressure at home was 200/90 however patient's blood pressure after being in the ED without any intervention other than taking her usual blood pressure medications prior to coming has significantly improved to 158/64. Patient currently feels much better. I have discussed with her that her elevated blood pressure can result in damage to her heart. Utilizing shared decision-making with the patient, patient will be discharged home per her preference and will continue taking her medications for her blood pressure. Patient will resume her usual outpatient follow-up in June [address] with [address] in [facility]. Reassessment at the time of disposition demonstrates that the patient is in no acute distress. The patient has remained stable throughout the entire ED visit and is without objective evidence for acute process requiring urgent intervention or hospitalization. The patient is stable for discharge, counseling is provided as documented above, discussed symptomatic treatment and specific conditions for return. I have spoken with the patient/caregiver and discussed todays findings, in addition to providing specific details for the plan of care. Questions are answered and there is agreement with the plan. Definitive disposition and diagnosis as appropriate pending reevaluation and review of above. - Related Data Allergies Allergy/AdvReac Type Severity Reaction Status Date / Time Tetanus Vaccines and Toxoid Allergy Other Verified 06/13/20 11:15 [Tetanus Vaccines & Toxoid] Home Meds: Home Meds Losartan [Cozaar] 1 tab PO DAILY 06/04/20 [History] amLODIPine [Norvasc] 5 mg PO DAILY 06/04/20 [History] Past Medical History HEENT History: Reports: None Cardiovascular History: Reports: Hypertension Respiratory History: Reports: None Gastrointestinal History: Reports: None Genitourinary History: Reports: Urinary Incontinence, UTI, Recurrent [employer] History: Reports: Musculoskeletal History: Reports: Back Pain, Chronic Neurological History: Reports: None Psychiatric History: Reports: Anxiety Endocrine/Metabolic History: Reports: None Hematologic History: Reports: None Immunologic History: Reports: None Oncologic (Cancer) History: Reports: None Dermatologic History: Reports: None - Infectious Disease History Infectious Disease History: Reports: Chicken Pox - Past Surgical History Head Surgeries/Procedures: Reports: None HEENT Surgical History: Reports: None Cardiovascular Surgical History: Reports: None Respiratory Surgical History: Reports: None GI Surgical History: Reports: None Female Surgical History: Reports: Hysterectomy Endocrine Surgical History: Reports: None Neurological Surgical History: Reports: None Musculoskeletal Surgical History: Reports: None Dermatological Surgical History: Reports: None Social & Family History - Family History Family Medical History: Noncontributory - Caffeine Use Caffeine Use: Reports: Coffee - Living Situation & Occupation Living situation: Reports: , Alone Occupation: Retired ED ROS GENERAL - Review of Systems Review Of Systems: See Below ED EXAM, GENERAL - Physical Exam Exam: See Below #1 Interpretation EKG Interpretation Comments: EKG: Normal sinus rhythm heart rate of [address]-T wave abnormalities Normal axis No evidence of ST elevation [place] As interpreted by ER physician: Supa Course - Vital Signs Last Recorded V/S: Last Vital Signs Temp 97.2 F 06/13/20 11:12 Pulse 95 06/13/20 11:55 Resp 16 06/13/20 11:55 BP 155/73 H 06/13/20 11:55 Pulse Ox 97 06/13/20 11:55 - Orders/Labs/Meds Orders: Active Orders 24 hr Category Date Time Status Chest 1V Frontal [CR] Stat Exams 06/13/20 11:26 Taken Sodium Chloride 0.9% [Saline Flush] Med 06/13/20 11:26 Active 10 ml FLUSH ASDIRECTED PRN Sodium Chloride 0.9% [Saline Flush] Med 06/13/20 11:26 Active 2.5 ml FLUSH ASDIRECTED PRN Saline Lock Insert [OM.PC] Stat Oth 06/13/20 11:26 Ordered Medication Orders Sodium Chloride (Saline Flush) 10 ml FLUSH ASDIRECTED PRN PRN Reason: Keep Vein Open Sodium Chloride (Saline Flush) 2.5 ml FLUSH ASDIRECTED PRN PRN Reason: Keep Vein Open Labs: Laboratory Tests 06/13/20 06/13/20 Range/Units 11:38 11:38 WBC 7.34 (4.0-11.0) K/uL RBC 4.90 (4.30-5.90) M/uL Hgb 13.2 (12.0-16.0) g/dL Hct 41.9 (36.0-46.0) % MCV 85.5 (80.0-98.0) fL MCH 26.9 L (27.0-32.0) pg MCHC 31.5 (31.0-37.0) g/dL RDW Std Deviation 47.0 (28.0-62.0) fl RDW Coeff of Tyron 15 (11.0-15.0) % Plt Count 182 (150-400) K/uL MPV 10.20 (7.40-12.00) fL Neut % (Auto) 68.1 (48.0-80.0) % Lymph % (Auto) 18.9 (16.0-40.0) % [place] % (Auto) 11.0 (0.0-15.0) % Eos % (Auto) 1.6 (0.0-7.0) % Baso % (Auto) 0.4 (0.0-1.5) % Neut # (Auto) 5.0 (1.4-5.7) K/uL Lymph # (Auto) 1.4 (0.6-2.4) K/uL [place] # (Auto) 0.8 (0.0-0.8) K/uL Eos # (Auto) 0.1 (0.0-0.7) K/uL Baso # (Auto) 0.0 (0.0-0.1) K/uL Nucleated RBC % 0.0 /100WBC Nucleated RBCs # 0 K/uL Sodium 137 (136-145) mmol/L Potassium 4.3 (3.5-5.1) mmol/L Chloride 103 (98-107) mmol/L Carbon Dioxide 25.4 (21.0-32.0) mmol/L BUN 16 (7.0-18.0) mg/dL Creatinine 0.9 (0.6-1.0) mg/dL Est Cr Clr Drug Dosing 31.63 mL/min Estimated GFR (MDRD) 59.2 ml/min Glucose 123 H (74-106) mg/dL Calcium 8.9 (8.5-10.1) mg/dL Total Bilirubin 0.3 (0.2-1.0) mg/dL AST 18 (15-37) IU/L ALT 31 (14-63) IU/L Alkaline Phosphatase 56 (46-116) U/L Troponin I < 0.050 (0.000-0.056) ng/mL Total Protein 6.8 (6.4-8.2) g/dL Albumin 3.3 L (3.4-5.0) g/dL Globulin 3.5 (2.6-4.0) g/dL Albumin/Globulin Ratio 0.9 (0.9-1.6) Meds: Medications Generic Name Dose Route Start Last Admin Trade Name Freq PRN Reason Stop Dose Admin Sodium Chloride 10 ml 06/13/20 11:26 Saline Flush FLUSH ASDIRECTED PRN Keep Vein Open Sodium Chloride 2.5 ml 06/13/20 11:26 Saline Flush FLUSH ASDIRECTED PRN Keep Vein Open Departure - Departure Time of Disposition: 12:40 Disposition: Home, Self-Care 01 Clinical Impression: Hypertension, Atypical chest pain - Discharge Information Instructions: Nonspecific Chest Pain, Adult, Hypertension, Adult, [id number] Referrals: PCP,None [Primary Care Provider] - Additional Instructions: You were seen and evaluated in the ER today secondary to your elevated blood pressure. Please make sure that you take your medication as prescribed every day. Please keep your appointment on June 26 with the setter cold rolling machine at [facility]. The following information is given to patients seen in the emergency department who are being discharged to home. This information is to outline your options for follow-up care. We provide all patients seen in our emergency department with a follow-up referral. The need for follow-up, as well as the timing and circumstances, are variable depending upon the specifics of your emergency department visit. If you don't have a primary care physician on staff, we will provide you with a referral. We always advise you to contact your personal physician following an emergency department visit to inform them of the circumstance of the visit and for follow-up with them and/or the need for any referrals to a consulting specialist. The emergency department will also refer you to a specialist when appropriate. This referral assures that you have the opportunity for follow-up care with a specialist. All of these measure are taken in an effort to provide you with optimal care, which includes your follow-up. [facility] - Primary Care [address] [place] [id number] [facility] [address] [place] [id number] Under all circumstances we always encourage you to contact your private physician who remains a resource for coordinating your care. When calling for follow-up care, please make the office aware that this follow-up is from your recent emergency room visit. If for any reason you are refused follow-up, please contact the [facility] Emergency Department at and asked to speak to the emergency department charge nurse. Sepsis Event Note (ED) - Evaluation Sepsis Screening Result: No Definite Risk - Focused Exam Vital Signs: Vital Signs Temp Pulse Resp BP Pulse Ox 06/13/20 11:55 95 16 155/73 H 97 06/13/20 11:12 97.2 F 97 16 197/82 H 96 - My Orders Last 24 Hours: My Active Orders 06/13/20 11:26 Chest 1V Frontal [CR] Stat Sodium Chloride 0.9% [Saline Flush] 10 ml FLUSH ASDIRECTED PRN Sodium Chloride 0.9% [Saline Flush] 2.5 ml FLUSH ASDIRECTED PRN Saline Lock Insert [OM.PC] Stat - Assessment/Plan Last 24 Hours: My Active Orders 06/13/20 11:26 Chest 1V Frontal [CR] Stat Sodium Chloride 0.9% [Saline Flush] 10 ml FLUSH ASDIRECTED PRN Sodium Chloride 0.9% [Saline Flush] 2.5 ml FLUSH ASDIRECTED PRN Saline Lock Insert [OM.PC] Stat
--- NOTE | 2020-06-13 12:41 | CR ---
INDICATION: Chest pain TECHNIQUE: Chest 1 views COMPARISON: March 30, 2020 FINDINGS: Cardiovascular and mediastinum: Heart size and vasculature are normal in caliber and appearance. Lungs and pleural spaces: Lungs are clear. No sign of infiltrate or mass. No sign of pleural effusion. No pneumothorax. Bones and soft tissues: No significant findings. IMPRESSION: No acute findings and no significant changes from the prior exam. Dictated by Renzo Hayes MD @ Jun 13 2020 12:39PM Signed by Dr. Renzo Hayes @ Jun 13 2020 12:40PM
[2020-06-13 13:15] VITALS: BP 135/51; PULSE 97
== END 2020-06-13 12:50 | disposition home or self-care (01) ==
LOC: MW.ED 11:08
DX: I10 Essential (primary) hypertension (principal); Z88.7 Allergy status to serum and vaccine; Z79.899 Other long term (current) drug therapy
CPT/HCPCS: 36415; 71045; 71045-26; 80053; 84484; 85025; 93005; 93010; 99283; 99285-25